=== PATIENT | female | born 1935 | race Caucasian/White ===

== ENCOUNTER → 2017-02-06 | Outpatient (CLI) | payer MEDICARE ==
--- NOTE | 2017-02-07 07:08 | MM ---
Reason for exam: screening (asymptomatic). Last mammogram was performed 2 years and 8 months ago. History: Patient is postmenopausal and has history of other cancer at age 66. Took estrogen for 10 years beginning at age 52. Took progesterone for 10 years beginning at age 52. Physical Findings: A clinical breast exam by your physician is recommended on an annual basis and results should be correlated with mammographic findings. MG 3D Screening Mammo W/Cad Bilateral CC and MLO view(s) were taken. Prior study comparison: June 08, 2014, left breast MG work up mamm w CAD LT. June 04, 2014, bilateral MG screening mammo w CAD. There are scattered fibroglandular densities. Asymmetric breast tissue in the left breast. No significant changes when compared with prior studies. ASSESSMENT: Benign, BI-RAD 2 RECOMMENDATION: Routine screening mammogram of both breasts in 1 year.
== END | disposition home or self-care (01) ==
LOC: RADMAMWWP 12:50
PROVIDERS: ATTEND Obstetrics & Gynecology Obstetrics
DX: Z12.31 Encounter for screening mammogram for malignant neoplasm of breast (principal); Z85.42 Personal history of malignant neoplasm of other parts of uterus
CPT/HCPCS: 77063; G0202

== ENCOUNTER 2023-12-16 12:55 | Inpatient (IN) | payer MEDICARE ==
--- NOTE | 2023-12-16 14:01 | ED ---
Fall HPI - General Chief Complaint: Fall Stated Complaint: Fall Time Seen by Provider: 12/16/23 13:05 Source: EMS, RN notes reviewed, old records reviewed Mode of arrival: EMS Limitations: no limitations - History of Present Illness Initial Comments: This is a 88-year-old female after a fall today. Patient has fall mechanical fall from standing landing on left hip severe left hip pain and inability to ambulate. Blood thinners did not hit head no headache chest pain shortness of breath abdominal pain. 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 Place Fall Occurred: home Loss of Consciousness: none Prolonged Down Time?: no Symptoms Prior to Fall: none Location - Extremities: Left: Thigh, Knee, Right: Knee Severity: severe Context: tripped/slipped Associated Symptoms: denies - Related Data Home Medications Medication Instructions Recorded Confirmed Cinacalcet [Sensipar] 30 mg PO MOWEFR 12/16/23 12/16/23 Famotidine [Pepcid] 20 mg PO BID 12/16/23 12/16/23 Memantine [Namenda] 5 mg PO BID 12/16/23 12/16/23 Simvastatin [Zocor] 20 mg PO HS 12/16/23 12/16/23 Previous Rx's Medication Instructions Recorded HYDROcodone/APAP 7.5-325MG [Preemption 1 tab PO Q4-6H PRN #30 tab 12/18/23 7.5-325] Rivaroxaban [Xarelto] 10 mg PO DAILY #30 tab 12/18/23 Sennosides [Senokot] 2 tab PO DAILY PRN #60 tablet 12/18/23 Acetaminophen Tab [Tylenol] 650 mg PO Q6HR PRN tab 12/20/23 Allergies Allergy/AdvReac Type Severity Reaction Status Date / Time No Known Allergies Allergy Verified 12/16/23 16:12 Review of Systems ROS Statement: Those systems with pertinent positive or pertinent negative responses have been documented in the HPI. ROS Other: All systems not noted in ROS Statement are negative. 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 Past Surgical History: Hysterectomy Additional Past Surgical History / Comment(s): Back surgery Smoking Status: Never smoker Past Alcohol Use History: None Reported Past Drug Use History: None Reported General Exam General appearance: alert, in no apparent distress Head exam: Present: atraumatic, normocephalic, normal inspection Eye exam: Present: normal appearance, PERRL, EOMI. Absent: scleral icterus, conjunctival injection, periorbital swelling ENT exam: Present: normal exam, mucous membranes moist Neck exam: Present: normal inspection. Absent: tenderness, meningismus, lymphadenopathy Respiratory exam: Present: normal lung sounds bilaterally. Absent: respiratory distress, wheezes, rales, rhonchi, stridor Cardiovascular Exam: Present: regular rate, normal rhythm, normal heart sounds. Absent: systolic murmur, diastolic murmur, rubs, gallop, clicks GI/Abdominal exam: Present: soft, normal bowel sounds. Absent: distended, tenderness, guarding, rebound, rigid Extremities exam: Present: normal inspection, full ROM, normal capillary refill. Absent: tenderness, pedal edema, joint swelling, calf tenderness Back exam: Present: normal inspection Neurological exam: Present: alert, oriented X3, CN II-XII intact Psychiatric exam: Present: normal affect, normal mood Skin exam: Present: warm, dry, intact, normal color. Absent: rash Course Vital Signs 12/16/23 12/16/23 12/16/23 12:58 19:26 21:19 Temperature 98.9 F 98.9 F Pulse Rate 108 H 90 91 Respiratory 20 18 20 Rate Blood Pressure 130/82 105/64 125/68 O2 Sat by Pulse 92 L 95 Oximetry - Reevaluation(s) Reevaluation #1: 12/16/23 14:11 Medical records reviewed Reevaluation #2: Patient symptoms improved and pain control Reevaluation #3: Patient informed of results and questions answered Reevaluation #4: Was pt. sent in by a medical professional or institution (, PA, DIRECTOR OF SUSTAINABLE DESIGN, urgent care, hospital, or skilled nursing...) When possible be specific @ -no Did you speak to anyone other than the patient for history (EMS, parent, family, police, friend...)? What history was obtained from this source @ -no Did you review nursing and triage notes (agree or disagree)? Why? @ -agree Are old charts reviewed (outside hosp., previous admission, EMS record, old EKG, old radiological studies, urgent care reports/EKG's, skilled nursing records)? Report findings @ -yes Differential Diagnosis (chest pain, altered mental status, abdominal pain women, abdominal pain men, vaginal bleeding, weakness, fever, dyspnea, syncope, headache, dizziness, GI bleed, back pain, seizure, CVA, palpatations, mental health, musculoskeletal)? @ -prior EKG interpreted by me (3pts min.). @ -yes X-rays interpreted by me (1pt min.). @ -yes negative for acute disease CT interpreted by me (1pt min.). @ -no U/S interpreted by me (1pt. min.). @ -no What testing was considered but not performed or refused? (CT, X-rays, U/S, labs)? Why? @ -none What meds were considered but not given or refused? Why? @ -none Did you discuss the management of the patient with other professionals (professionals i.e. , PA, DIRECTOR OF SUSTAINABLE DESIGN, lab, RT, psych nurse, manager social media, clay miller, teacher, electronic warfare officer, housing case manager)? Give summary @ -no Was smoking cessation discussed for >3mins.? @ -no Was critical care preformed (if so, how long)? @ -no Were there social determinants of health that impacted care today? How? (Homelessness, low income, unemployed, alcoholism, drug addiction, transportation, low edu. Level, literacy, decrease access to med. care, skilled nursing, rehab)? @ -none Was there de-escalation of care discussed even if they declined (Discuss DNR or withdrawal of care, Hospice)? DNR status @ -no What co-morbidities impacted this encounter? (DM, HTN, Smoking, COPD, CAD, Cancer, CVA, ARF, Chemo, Hep., AIDS, mental health diagnosis, sleep apnea, morbid obesity)? @ -none Was patient admitted / discharged? Hospital course, mention meds given and route, prescriptions, significant lab abnormalities, going to OR and other pertinent info. @ - 88 female status post fall this is a slip and fall resulting in hip fracture right hip fracture, patient will be admitted for surgical evaluation and management Admitted Undiagnosed new problem with uncertain prognosis? @ -no Drug Therapy requiring intensive monitoring for toxicity (Heparin, Nitro, Insulin, Cardizem)? @ -no Were any procedures done? @ -no Diagnosis/symptom? @ -Fall with hip fracture Acute, or Chronic, or Acute on Chronic? @ -Acute Uncomplicated (without systemic symptoms) or Complicated (systemic symptoms)? @ -Complicated Side effects of treatment? @ -no Exacerbation, Progression, or Severe Exacerbation? @ -exacerbation Poses a threat to life or bodily function? How? (Chest pain, [place], [place], pneumonia, PE, COPD, DKA, ARF, appy, cholecystitis, CVA, Diverticulitis, Homicidal, Suicidal, threat to staff... and all critical care pts) @ -yes extremes of age Reevaluation #5: Differential chest pain - Consultations Consultation #1: Spoke with orthopedics to admit this patient Medical Decision Making - Medical Decision Making 88 female status post fall this is a slip and fall resulting in hip fracture right hip fracture, patient will be admitted for surgical evaluation and management - Lab Data Result diagrams: 12/20/23 06:51 12/20/23 06:51 - EKG Data -: EKG Interpreted by Me (EKG is sinus 76 SC 214 QRS 70 QTc 450) - Radiology Data Radiology results: report reviewed (X-ray chest pelvis knee right hip is positive for right hip fracture), image reviewed Disposition Clinical Impression: Displaced fracture of right femoral neck, Right hip pain, Fall Disposition: ADMITTED IP TO THIS [facility] Condition: Serious Is patient prescribed a controlled substance at d/c from ED?: No Time of Disposition: 16:00
--- NOTE | 2023-12-16 14:51 | XR ---
EXAMINATION TYPE: XR chest 1V DATE OF EXAM: 12/16/2023 2:34 PM CLINICAL INDICATION:Female, 88 years old with history of fall; COMPARISON: Scoliosis changes of the spine. TECHNIQUE: XR chest 1V Frontal view of the chest. FINDINGS: Lungs/Pleura: There is no evidence of pleural effusion, focal consolidation, or pneumothorax. Pulmonary vascularity: Unremarkable. Heart/mediastinum: Cardiomediastinal silhouette is unremarkable. Musculoskeletal: No acute osseous pathology. IMPRESSION: No acute cardiopulmonary disease/process.
--- NOTE | 2023-12-16 14:52 | XR ---
EXAMINATION TYPE: XR knee limited RT DATE OF EXAM: 12/16/2023 2:34 PM CLINICAL INDICATION:Female, 88 years old with history of fall; [facility] COMPARISON: None. TECHNIQUE: XR knee limited RT; examined in Frontal, lateral projections. FINDINGS: No evidence of any acute osseous pathology, soft tissue swelling, or joint effusion is no noris. Tricompartmental osteophyte formation involving the femoral condyles, tibial plateau and patella . Mild to moderate joint space narrowing. Calcification of the menisci. A fabella is present. IMPRESSION: 1. No acute osseous pathology. 2. Moderate tricompartmental osteoarthritic changes.
--- NOTE | 2023-12-16 14:54 | XR ---
EXAMINATION TYPE: XR Hip RT and AP Pelvis DATE OF EXAM: 12/16/2023 2:34 PM CLINICAL INDICATION:Female, 88 years old with history of fall; COMPARISON: None. TECHNIQUE: XR Hip RT and AP Pelvis; hip was examined in the frontal and lateral projections and a AP pelvis. FINDINGS/IMPRESSION: 1. Acute right femoral neck fracture with valgus deformity. 2. Degeneration and scoliosis changes of the spine. 3. Postsurgical changes with surgical clips present. 4. Questionable step-off of the left inferior pubic ramus seen on pelvic radiograph. Correlate for l eft-sided pain.
[2023-12-16] MEDS ORDERED: ONDANSETRON 4 MG/2 ML VIAL IVP PRN (16:14)
[2023-12-16] MEDS ORDERED: NALOXONE 0.4 MG/ML 1 ML VIAL IV PRN (16:14)
[2023-12-16] MEDS: SODIUM CHLORIDE 0.9% 1,000 ML IV STA (17:53)
[2023-12-16 18:03] LABS: Basophils # (A) 0.1 k/uL (0-0.2); Basophils % (A) 1 %; Eosinophils # (A) 0.1 k/uL (0-0.7); Eosinophils % (A) 1 %; HCT 36.6 % (34.0-46.0); HGB 11.4 gm/dL (11.4-16.0); Lymphocytes # (A) 1.2 k/uL (1.0-4.8); Lymphocytes % (A) 14 %; MCH 31.6 pg (25.0-35.0); MCHC 31.2 g/dL (31.0-37.0); MCV 101.5 fL (80.0-100.0); Mean Platelet Volume 11.6; Monocytes # (A) 0.9 k/uL (0-1.0); Monocytes % (A) 10 %; Neutrophils # (A) 6.1 k/uL (1.3-7.7); Neutrophils % (A) 72 %; Platelet Count 116 k/uL (150-450); RDW 12.4 % (11.5-15.5); WBC 8.5 k/uL (3.8-10.6)
[2023-12-16] MEDS ORDERED: traMADol 50 MG TAB PO PRN (18:03)
[2023-12-16 18:13] LABS: ALT 15 U/L (4-34); AST 25 U/L (14-36); African American GFR (CKD) 34 (>60 ml/min/1.73 sqM); Albumin 3.8 g/dL (3.5-5.0); Alkaline Phosphatase 53 U/L (38-126); Anion Gap 5 mmol/L; Blood Urea Nitrogen 37 mg/dL (7-17); Calcium 8.9 mg/dL (8.4-10.2); Carbon Dioxide 23 mmol/L (22-30); Chloride 108 mmol/L (98-107); Glucose 103 mg/dL (74-99); Non-African American GFR(CKD) 29 (>60 ml/min/1.73 sqM); Phosphorus 3.8 mg/dL (2.5-4.5); Potassium 4.6 mmol/L (3.5-5.1); Sodium 136 mmol/L (137-145); Total Bilirubin 0.9 mg/dL (0.2-1.3); Total Protein 6.6 g/dL (6.3-8.2)
[2023-12-16 18:21] LABS: NT-Pro-B-Type Natriuretic Pept 348 pg/mL
[2023-12-16] MEDS: traMADol 50 MG TAB PO PRN (18:37)
[2023-12-16 19:03] LABS: Large Platelets Present
[2023-12-16] MEDS: FAMOTIDINE 20 MG TAB PO SCH (23:30)
[2023-12-16] MEDS: MEMANTINE 5 MG TAB PO SCH (23:30)
[2023-12-16] MEDS: ATORVASTATIN 10 MG TAB PO SCH (23:30)
[2023-12-17] MEDS: lisinopriL 20 MG TAB PO SCH (09:09)
--- NOTE | 2023-12-17 09:16 | P.HPOR ---
History of Present Illness H&P Date: 12/17/23 Chief Complaint: Right hip fracture s/p fall The patient is an 88-year-old female with a past medical history including stage III chronic kidney disease, dementia, hypertension, and hyperlipidemia, who presented to the emergency department after sustaining a fall at home. She states she fell directly on the right side and was unable to bear weight on the right leg. Upon evaluation in the emergency department, the patient was found to have a right displaced femoral neck fracture and right forearm skin tear. She denies hitting her head. this morning, the patient states that her pain is controlled at this time. The patient's daughters at the bedside and states that the patient does use a walker and lives in their own home with her . Review of Systems Constitutional: Denies chills, Denies fatigue, Denies fever Cardiovascular: Denies chest pain, Denies shortness of breath Respiratory: Denies cough Gastrointestinal: Denies diarrhea, Denies nausea, Denies vomiting Musculoskeletal: right: hip pain, hip stiffness, hip swelling Past Medical History Past Medical History: Hyperlipidemia, Hypertension Additional Past Medical History / Comment(s): Stage 3 chronic kidney disease and osteoporesis, early onset dementia-unspecified History of Any Multi-Drug Resistant Organisms: None Reported Past Surgical History: Hysterectomy Additional Past Surgical History / Comment(s): Back surgery, bilateral cataracts Past Anesthesia/Blood Transfusion Reactions: No Reported Reaction Past Psychological History: No Psychological Hx Reported Smoking Status: Never smoker Past Alcohol Use History: None Reported Past Drug Use History: None Reported Medications and Allergies Home Medications Medication Instructions Recorded Confirmed Type Cinacalcet [Sensipar] 30 mg PO MOWEFR 12/16/23 12/16/23 History Enalapril [Vasotec] 10 mg PO DAILY 12/16/23 12/16/23 History Famotidine [Pepcid] 20 mg PO BID 12/16/23 12/16/23 History Memantine [Namenda] 5 mg PO BID 12/16/23 12/16/23 History Simvastatin [Zocor] 20 mg PO HS 12/16/23 12/16/23 History traMADol HCl [Ultram] 50 mg PO Q6HR PRN 12/16/23 12/16/23 History Allergies Allergy/AdvReac Type Severity Reaction Status Date / Time No Known Allergies Allergy Verified 12/16/23 16:12 Physical Examination The patient is a 88 year old female that is no acute distress. She is alert and oriented x3. The patient's head is normocephalic and atraumatic. Exam of the cervical spine reveals no pain upon palpation or range of motion. Exam of the bilateral upper extremities reveal no obvious deformities or pain upon range of motion. There is a dressing on the right forearm that is clean and dry. Exam of the left lower extremity reveals no pain upon palpation and full range of motion of the hip. no pain upon AP and lateral compression of the pelvis on the left side. Exam of the right lower extremity reveals a externally rotated and shortened leg. No pain upon palpation to the lateral hip. There is pain upon logrolling and any range of motion of the leg. Bilateral calves are soft and nontender. Patient has good foot and ankle motion bilaterally. Neurological and circulatory status is intact. Results X-rays of the right hip and pelvis reveals a displaced right femoral neck fracture and possible old left inferior pubic rami fracture. - Labs Labs: Abnormal Lab Results - Last 24 Hours (Table) 12/16/23 12/16/23 Range/Units 17:53 17:53 RBC 3.60 L (3.80-5.40) m/uL MCV 101.5 H (80.0-100.0) fL Plt Count 116 L (150-450) k/uL Sodium 136 L (137-145) mmol/L Chloride 108 H (98-107) mmol/L BUN 37 H (7-17) mg/dL Creatinine 1.57 H (0.52-1.04) mg/dL Glucose 103 H (74-99) mg/dL H & H 12/16/23 Range/Units 17:53 Hgb 11.4 (11.4-16.0) gm/dL Hct 36.6 (34.0-46.0) % Result Diagrams: 12/16/23 17:53 12/16/23 17:53 Assessment and Plan (1) Chronic kidney disease Current Visit: Yes Status: Acute Code(s): N18.9 - CHRONIC KIDNEY DISEASE, UNSPECIFIED SNOMED Code(s): 407143575 (2) Dementia Current Visit: Yes Status: Acute Code(s): F03.90 - UNSP DEMENTIA, UNSP SEVERITY, WITHOUT BEH/PSYCH/MOOD/ANX SNOMED Code(s): 82887084 (3) Hyperlipidemia Current Visit: Yes Status: Acute Code(s): E78.5 - HYPERLIPIDEMIA, UNSPECIFIED SNOMED Code(s): 98828304 (4) Hypertension Current Visit: Yes Status: Acute Code(s): I10 - ESSENTIAL (PRIMARY) HYPERTENSION SNOMED Code(s): 45261432 (5) Right hip pain Current Visit: Yes Status: Acute Code(s): M25.551 - PAIN IN RIGHT HIP SNOMED Code(s): 50958721 (6) Fall Current Visit: Yes Status: Acute Code(s): W19.XXXA - UNSPECIFIED FALL, INITIAL ENCOUNTER SNOMED Code(s): 3014508 (7) Displaced fracture of right femoral neck Current Visit: Yes Status: Acute Code(s): S72.001A - FRACTURE OF UNSP PART OF NECK OF RIGHT FEMUR, INIT SNOMED Code(s): 2121854 Plan: The clinical and x-ray findings were discussed with the patient and her daughter. The case was discussed at length with Dr. Vlad Uribe. Treatment options were discussed and surgical intervention is recommended. We discussed the surgical plan as well as the expected postoperative course. Risks and jerald efits were reviewed including (but not limited to) the risks of infection, bleeding, blood clots, dislocation, delayed or nonunion, anesthesia-related complications and possible need for additional surgery. Questions were invited and answered. The patient expressed understanding and wishes to proceed with surgery. The patient will be kept on bedrest. Continue PRN pain management. NPO today. She is scheduled for a right hip hemiarthroplasty later this afternoon. We will await pre-op clearance from internal medicine.
[2023-12-17 10:41] LABS: Basophils # (A) 0.07 X 10*3/uL (0.00-0.10); Basophils % (A) 0.8 %; Eosinophils # (A) 0.23 X 10*3/uL (0.04-0.35); Eosinophils % (A) 2.6 %; HCT 36.8 % (37.2-46.3); HGB 11.7 g/dL (12.0-15.0); Lymphocytes # (A) 1.55 X 10*3/uL (0.90-5.00); Lymphocytes % (A) 17.5 %; MCH 32.1 pg (27.0-32.0); MCHC 31.8 g/dL (32.0-37.0); MCV 101.1 FL (80.0-97.0); Monocytes # (A) 1.49 X 10*3/uL (0.20-1.00); Monocytes % (A) 16.8 %; NRBC Per 100 WBC 0 X 10*3/uL (0.00-0.01); Neutrophils # (A) 5.53 X 10*3/uL (1.80-7.70); Neutrophils % (A) 62.2 %; Platelet Count 109 X 10*3/uL (140-440); RBC 3.64 X 10*6/uL (4.10-5.20); RDW 13.1 % (11.5-14.5); WBC 8.88 X 10*3/uL (4.50-10.00)
[2023-12-17 10:56] LABS: BUN/Creat Ratio 21.73 Ratio (12.00-20.00); Blood Urea Nitrogen 32.6 mg/dL (9.0-27.0); Glucose 94 mg/dL (70-110); Magnesium 2.1 mg/dL (1.5-2.4); Phosphorus 3.5 mg/dL (2.4-5.1)
[2023-12-17 10:57] LABS: ALT 12 U/L (8-44); AST 23 U/L (13-35); Albumin/Globulin Ratio 1.48 Ratio (1.60-3.17); Alkaline Phosphatase 51 U/L (41-126); Calcium 9.5 mg/dL (8.7-10.3); Carbon Dioxide 21.7 mmol/L (21.6-31.8); Chloride 104 mmol/L (96-109); Globulin 2.7 g/dL (1.6-3.3); Potassium 4.3 mmol/L (3.5-5.5); Sodium 139 mmol/L (135-145); Total Bilirubin 0.8 mg/dL (0.3-1.2); Total Protein 6.7 g/dL (6.2-8.2)
[2023-12-17] MEDS: LACTATED RINGERS 1,000 ML IV ONE (12:04)
[2023-12-17] MEDS: DEXAMETHASONE SOD PHOSPHATE 4 MG/ML 1 ML VIAL IVP ONE (12:10)
[2023-12-17] MEDS: ONDANSETRON 4 MG/2 ML VIAL IVP ONE (12:10)
[2023-12-17] MEDS ORDERED: HYDROmorphone 0.5 MG/0.5 ML SYRINGE IVP PRN ×3 (13:20)
[2023-12-17] MEDS ORDERED: SUCCINYLCHOLINE CHLORIDE 200 MG/10 ML VIAL IV ONE (13:20)
[2023-12-17] MEDS ORDERED: NALOXONE 0.4 MG/ML 1 ML VIAL IV PRN (13:20)
[2023-12-17] MEDS ORDERED: ROCURONIUM 10 MG/ML (5 ML VIAL) IV ONE (13:20)
[2023-12-17] MEDS ORDERED: GLYCOPYRROLATE 0.2 MG/ML 2 ML VIAL ONE (13:20)
[2023-12-17] MEDS ORDERED: MAGNESIUM HYDROXIDE 2,400 MG/30 ML CUP PO PRN (13:20)
[2023-12-17] MEDS ORDERED: TRANEXAMIC 1,000 MG/100ML-NACL PREMIX BAG ONE (13:20)
[2023-12-17] MEDS ORDERED: PHENYLEPHRINE-0.9% NACL SYG 1,000 MCG/10 ML SYRINGE ONE (13:20)
[2023-12-17] MEDS ORDERED: fentaNYL (PF) 50 MCG/ML 2 ML AMP ONE (13:20)
[2023-12-17] MEDS ORDERED: HYDROcodone/APAP 7.5-325MG 1 EACH TAB PO PRN (13:20)
[2023-12-17] MEDS ORDERED: LIDOCAINE 1% INJ 10MG/ML (20 ML MDV) ONE (13:20)
[2023-12-17] MEDS ORDERED: NEOSTIGMINE 1 MG/ML 10 ML VIAL ONE (13:20)
[2023-12-17] MEDS ORDERED: ETOMIDATE 2 MG/ML 10 ML VIAL ONE (13:20)
[2023-12-17] MEDS: SODIUM CHLORIDE 0.9% 100 ML IV ONE (13:25)
[2023-12-17] MEDS: ROPIVACAINE 5 MG/ML 30 ML VIAL MISCELLANE ONE ×2 (14:08→14:16)
--- NOTE | 2023-12-17 14:23 | P.OP ---
Date of Procedure: 12/17/23 Preoperative Diagnosis: subcapital fracture right hip Postoperative Diagnosis: subcapital fracture right hip Procedure(s) Performed: right hip hemiarthroplasty with a direct anterior approach Implants: Judd and nephew Polarstem size 3 standard with a collar Judd [employer] Nephew tandem unipolar, 43 mm Judd [employer] Nephew tandem unipolar 12/14 taper sleeve, +0 mm All components were press-fit. Anesthesia: GETA Surgeon: Vlad Uribe Cabin Supervisor #1: Kimberley Tong Estimated Blood Loss (ml): 150 Pathology: none sent Condition: stable Disposition: PACU Indications for Procedure: this is an 88-year-old female that sustained a ground-level fall at home. X- rays demonstrate a subcapital fracture of the right hip. After discussing the surgical nonsurgical treatment options with her and her family at length, I recommended a right hip hemiarthroplasty. Informed consent was obtained. Operative Findings: the operative findings are consistent with a subcapital fracture of the right hip Description of Procedure: The patient was seen and evaluated in the preoperative area and the consent was reviewed. The operative site was marked with a skin marker. The patient verified the procedure and operative site. A TATY block was placed by anesthesia in the preoperative area. The patient was then brought to the operating room and given preoperative antibiotics intravenously. 1 g of Tranexamic acid was also given intravenously. A general anesthetic was administered by the anesthesia department. The patient was then placed on the [place] table with the bony prominences well-padded. The hip area was then prepped with a ChloraPrep solution and draped in the usual sterile fashion. A universal timeout was then performed, which confirmed the patient's name, surgical site, ALLERGIES, and procedure being performed on the consent. Next the incision site was located at 1 cm distal and 4 cm lateral to the anterior superior iliac spine. The skin and subcutaneous tissues were sharply incised. Incision was carefully dissected down to the fascia overlying the tensor fascia gayla muscle. This fascia was then incised in line with the muscle fibers. Care was taken to stay laterally in order to avoid injuring the lateral femoral cutaneous nerve. Next, using blunt finger dissection, the tensor fascia gayla muscle was dissected off its investing fascia. The muscle was then carefully retracted laterally with a cobra retractor over the lateral neck of the femur. Next, the circumflex vessels were identified and cauterized using the Aquamantis device. The anterior hip capsule was then exposed. The capsule was then opened and an inverted T fashion. The retractors were then placed intracapsularly. The retractors were maintained intracapsular throughout the procedure. The proximal femur was then visualized. A small amount of traction was placed on the leg. The femoral neck was then osteotomized at the appropriate level above the lesser trochanter. A small wedge of bone was then removed from the remaining femoral head. Next, using a corkscrew the femoral head was removed from the acetabulum. The femoral head was then measured. Attention was then turned to the acetabulum. The acetabulum was exposed and inspected. There was no evidence of any significant arthrosis. Attention was then directed to the femur. With the aid of the [place] table, the femur was externally rotated to approximately 130, extended, and adducted under the opposite leg. A side hook was then placed under the proximal femur, and the side hook elevator was used to elevate the proximal femur while releasing the capsule. Retractors were then placed. A capsular release was performed, as well as a release of the conjoined tendon, which afforded excellent visualization of the proximal femur. Next, a box osteotome was used to lateralize the proximal femur. A deputy sheriff k9 handler was then used to locate the femoral canal. Sequential broaching was then performed with appropriate size which afforded excellent fixation in the proximal femur. A trial was then placed with appropriate head and neck, and the hip was gently reduced with the aid of the [place] table. Fluoroscopy was then used to check position of the components, as well as to evaluate the leg lengths and offset. The leg lengths and offset were measured as closely as possible to ensure stability of the hip. The hip was then gently dislocated and the trials were then removed. Final implants were then impacted and the hip was again reduced. Final fluoroscopic x-rays confirmed that the components were in anatomic position. The leg lengths and offset were measured and were found to coincide with the trial measurements. The hip was also taken through range of motion, and found to be stable. The hip was then copiously irrigated with antibiotic solution with pulsatile lavage. The hip was then irrigated with Irrisept solution. The soft tissues were then injected with a ropivacaine solution. A second dose of 1 g of Tranexamic acid was also given intravenously. The fascia was then closed with 2-0 strata fix suture. The subcutaneous tissue was closed with 3-0 Vicryl. The subcuticular tissue was closed with 3-0 strata fix suture. The skin was then closed with Exofin skin glue. After the glue and dried, and Optifoam silver impregnated dressing was applied. The patient was then transferred to the recovery room in stable condition. The elementary assistant teacher KLEBER Hu was required due to the complexity of surgery, and the need for skilled surgical clinical reviewer for positioning, draping, exposure, retraction, and closure of the wound.
--- NOTE | 2023-12-17 15:32 | FL ---
RT berta hip with Heithoff. 11 sec fluoro time. .3874 DAP. 2 images saved.
[2023-12-17] MEDS: SODIUM CHLORIDE 0.9% 1,000 ML IV SCH (15:55)
--- NOTE | 2023-12-17 16:15 | XR ---
EXAMINATION TYPE: XR Hip Limited RT DATE OF EXAM: 12/17/2023 Comparison: None Clinical History: 88-year-old female RT hip berta Findings: RT berta hip with Heithoff. 11 sec fluoro time. 0.3874 Gycm2 DAP. 2 images saved. Impression: Intraoperative fluoroscopy as above.
--- NOTE | 2023-12-17 16:16 | XR ---
EXAMINATION TYPE: XR Hip Limited AP RT DATE OF EXAM: 12/17/2023 Comparison: None Clinical History: 88-year-old female Status post hip surgery, assess surgical alignment Findings: Image shows placement of right hip hemiarthroplasty. Femoral stem component appears well-seated witho ut periprosthetic fracture. Alignment grossly anatomic. Surgical clips in the right side of the pelvi s. Soft tissue air related to recent operation. Impression: Uncomplicated postoperative appearance right hip total arthroplasty.
[2023-12-17] MEDS: SENNOSIDES-DOCUSATE SODIUM 1 EACH TAB PO SCH (20:23)
--- NOTE | 2023-12-17 22:57 | CONS ---
CONSULTATION REASON FOR CONSULTATION: Advice regarding kidney failure, hypertension, hyperlipidemia, requested by Orthopedics. HISTORY OF PRESENT ILLNESS: This is an 88-year-old woman with past medical history of stage 3 kidney disease, hypertension, hyperlipidemia, was admitted with mechanical fall on standing and assess left hip fracture. The patient is mildly confused. The patient also had renal failure 1.57 on admission, improved to 1.5 with IV hydration. The patient is being closely monitored. There is no history of any fever, rigors, or chills at this time. There is no history of chest pain. Previously, there are no cardiorespiratory symptoms. PAST MEDICAL HISTORY: Reviewed include hypertension, hyperlipidemia, stage 3 kidney disease. Rest of the chart and rest of the history is also reviewed. HOME MEDICATIONS: Reviewed Ultram. Doses and rest of medications reviewed. ALLERGIES: None. FAMILY HISTORY: No history of heart disease or strokes in the family. SOCIAL HISTORY: No history of smoking or alcohol. REVIEW OF SYSTEMS: A 14-point review is negative except as mentioned earlier. PHYSICAL EXAMINATION: VITAL SIGNS: Pulse is 101, blood pressure 128/72, respirations 16. HEENT: Conjunctivae normal. NECK: No jugular venous distention. CARDIOVASCULAR: S1, S2. RESPIRATIONS: Her respiratory system is clear to auscultation. ABDOMEN: Soft, nontender. LEGS: Status post fracture. NERVOUS SYSTEM: Nonfocal. LABORATORY DATA: WBC 8.8, hemoglobin 11.7, albumin globin ratio 1.48. ASSESSMENT: 1. Status post fall and right hip fracture. 2. Chronic kidney stage 3. 3. Dehydration present on admission. 4. Anemia, macrocytic. 5. Mild hyponatremia, improving. 6. Hypertension. 7. Hyperlipidemia. 8. History of cystectomy. 9. Full code. RECOMMENDATIONS AND DISCUSSION: This 88-year-old woman presented after a fall and fracture. At this time, I recommended to continue IV fluids otherwise baseline creatinine is improving at this time. RECOMMENDATIONS: Recommended to monitor the renal functions and lytes very closely. Chest x-ray was reviewed. The patient will be cleared for surgery and home medications will be continued. Pain management per Orthopedic surgery. Prognosis guarded, but however, the patient is currently stable. Discussed at length with the family at the bedside and further recommendations to follow. DVT prophylaxis. MMODL / IJN: [id number] /
[2023-12-18] MEDS: RIVAROXABAN 10 MG TAB PO SCH (08:56)
[2023-12-18] MEDS: CINACALCET 30 MG TAB PO SCH (08:56)
--- NOTE | 2023-12-18 09:56 | P.PN ---
Subjective Progress Note Date: 12/18/23 This is an 88-year-old fe male who is status post right hip hemiarthroplasty with direct anterior approach. This is postoperative day #1 and patient is seen and evaluated at bedside with Dr. Vlad Uribe. Patient is alert but somewhat confused this morning. Patient reports some pain in the right hip, but otherwise denies any new complaints today. Per nursing, the patient took her dressing off. Objective - Vital Signs Vital signs: Vital Signs Temp 98.5 F 12/18/23 07:25 Pulse 113 H 12/18/23 07:25 Resp 16 12/18/23 07:25 BP 140/81 12/18/23 07:25 Pulse Ox 94 L 12/18/23 07:25 FiO2 Intake & Output 12/17/23 12/18/23 12/18/23 18:59 06:59 18:59 Intake Total 650 Output Total 400 400 Balance 250 -400 Intake: IV 650 Output: Urine 250 400 Estimated Blood Loss 150 Other: Voiding Method Indwelling Catheter Indwelling Catheter Diaper # Voids 1 - Exam Vital signs are stable. Patient is in no acute distress and is alert and pleasantly confused. Calf is soft and nontender to palpation. Dressing is clean, dry, and intact. Patient has full foot and ankle motion without pain or difficulty. Sensation intact. Neurovascular status and circulatory status are intact. - Labs CBC & Chem 7: 12/17/23 05:09 12/17/23 05:09 Labs: Abnormal Lab Results - Last 24 Hours (Table) 12/17/23 12/17/23 Range/Units 05:09 05:09 RBC 3.64 L (4.10-5.20) X 10*6/uL Hgb 11.7 L (12.0-15.0) g/dL Hct 36.8 L (37.2-46.3) % MCV 101.1 H (80.0-97.0) FL MCH 32.1 H (27.0-32.0) pg MCHC 31.8 L (32.0-37.0) g/dL Plt Count 109 L (140-440) X 10*3/uL MPV 14.0 H (9.5-12.2) FL Monocytes # 1.49 H (0.20-1.00) X 10*3/uL Anion Gap 13.30 H (4.00-12.00) mmol/L BUN 32.6 H (9.0-27.0) mg/dL Est GFR (CKD-EPI) 34 L (>=60) BUN/Creatinine Ratio 21.73 H (12.00-20.00) Ratio Albumin/Globulin Ratio 1.48 L (1.60-3.17) Ratio Assessment and Plan Plan: Continue routine postop care and pain control. A new dressing was applied by [facility] staff today. Continue anticoagulation with Xarelto. Weightbearing as tolerated with a walker. Leave dressing in place for 7 days. Appreciate input from internal medicine. Anticipate discharge to ECF in the next 24-48 hours.
[2023-12-18 10:42] LABS: Magnesium 2.1 mg/dL (1.5-2.4)
[2023-12-18 11:14] LABS: ALT 11 U/L (8-44); AST 43 U/L (13-35); Albumin 3.7 g/dL (3.8-4.9); Albumin/Globulin Ratio 1.61 Ratio (1.60-3.17); Alkaline Phosphatase 46 U/L (41-126); BUN/Creat Ratio 19.21 Ratio (12.00-20.00); Blood Urea Nitrogen 36.5 mg/dL (9.0-27.0); Calcium 8.6 mg/dL (8.7-10.3); Carbon Dioxide 17.6 mmol/L (21.6-31.8); Chloride 104 mmol/L (96-109); Globulin 2.3 g/dL (1.6-3.3); Glucose 106 mg/dL (70-110); Potassium 4.7 mmol/L (3.5-5.5); Sodium 139 mmol/L (135-145); Total Bilirubin 0.3 mg/dL (0.3-1.2)
[2023-12-18 11:47] LABS: Basophils # (A) 0.03 X 10*3/uL (0.00-0.10); Basophils % (A) 0.2 %; Eosinophils # (A) 0 X 10*3/uL (0.04-0.35); Eosinophils % (A) 0 %; HCT 30.6 % (37.2-46.3); HGB 9.9 g/dL (12.0-15.0); Lymphocytes # (A) 1.29 X 10*3/uL (0.90-5.00); Lymphocytes % (A) 8.4 %; MCH 32.1 pg (27.0-32.0); MCHC 32.4 g/dL (32.0-37.0); MCV 99.4 FL (80.0-97.0); Mean Platelet Volume 13.7 FL (9.5-12.2); Monocytes # (A) 2.41 X 10*3/uL (0.20-1.00); Monocytes % (A) 15.7 %; NRBC Per 100 WBC 0 X 10*3/uL (0.00-0.01); Neutrophils # (A) 11.55 X 10*3/uL (1.80-7.70); Neutrophils % (A) 75.2 %; Platelet Count 105 X 10*3/uL (140-440); RBC 3.08 X 10*6/uL (4.10-5.20); RDW 13.2 % (11.5-14.5); WBC 15.35 X 10*3/uL (4.50-10.00)
[2023-12-18 11:48] LABS: RBC Morphology Normal (Normal)
--- NOTE | 2023-12-18 15:32 | XR ---
EXAMINATION TYPE: XR chest 1V portable DATE OF EXAM: 12/18/2023 Comparison: 12/16/2023 Clinical History: 88-year-old female shortness of breath Findings: Patient rotated towards the right ultrasound and normal cardiothymic mediastinal contours. Levoconvex scoliosis. Heart borderline in size. Patchy left basilar opacity appears new. No pleural effusion. Impression: Scoliosis. Rotated exam. New patchy left basilar opacity. Correlate for possible pneumonia.
--- NOTE | 2023-12-19 02:10 | PN ---
PROGRESS NOTE DATE OF SERVICE: 12/18/2023 SUBJECTIVE: This is an 88-year-old woman who was admitted with fall and right hip fracture and surgery. The patient also had renal failure, currently today the creatinine is 1.9. Estimated GFR is not available, it was 29 to begin with. The patient also had elevated white count and hemoglobin is 9.9 today. PAST MEDICAL HISTORY: Reviewed. REVIEW OF SYSTEMS: A 14-point review is negative except as mentioned earlier. CURRENT MEDICATIONS: Reviewed include Pepcid. PHYSICAL EXAMINATION: VITAL SIGNS: Pulse is 113, blood pressure 140/80, respirations 16. HEENT: Conjunctivae normal. NECK: No jugular venous distention. CARDIOVASCULAR: S1, S2. RESPIRATIONS: Diminished at the bases, scattered rhonchi. ABDOMEN: Soft, nontender. LEGS: No edema, no swelling. NERVOUS SYSTEM: Nonfocal. LABORATORY DATA: WBC 15.5, hemoglobin 9.9. ASSESSMENT: 1. Status post fall and right hip fracture and right hip hemiarthroplasty. 2. Chronic kidney disease, stage III. 3. Elevated WBC. 4. Dehydration present on admission. 5. Anemia, macrocytic. 6. Mild hyponatremia. 7. Hypertension. 8. Hyperlipidemia. 9. History of cyst. 10.Multiple medical issues. RECOMMENDATIONS AND DISCUSSION: This is an 88-year-old woman who presented with multiple medical issues, we will monitor the patient closely. I would recommend UA with micro, chest x-ray. Repeat labs. DVT prophylaxis. Incentive spirometry. Monitor creatinine closely. Continue the IV fluids. Discussed with family, follow closely with Orthopedic surgery. Once the patient is stabilized with PT OT evaluation, possible ECF rehab, stable, overall prognosis guarded because of the above-mentioned medical issues. Discussed with family. Further recommendations to follow. MMODL / IJN: [id number] /
[2023-12-19 04:54] LABS: Appearance,Urine Cloudy (Clear); Bacteria,Urine Rare /hpf; Bilirubin,Urine Negative (Negative); Blood,Urine Moderate (Negative); Color,Urine Colorless; Glucose,Urine (UA) Negative (Negative); Granular Casts,Urine 4 /lpf (0); Hyaline Casts,Urine 5 /lpf (0-2); Ketones,Urine Negative (Negative); Leukocyte Esterase,Urine Large (Negative); Mucus,Urine Rare /hpf; Nitrite,Urine Negative (Negative); PH, Urine 5.5 (5.0-8.0); Protein,Urine 1+ (Negative); RBC,Urine 3 /hpf (0-5); Specific Gravity,Urine 1.016 (1.001-1.035); Squamous Epithelial Cell,Urine 2 /hpf (0-4); Urobilinogen,Urine <2.0 mg/dL (<2.0); WBC,Urine 25 /hpf (0-5)
[2023-12-19 08:46] LABS: Basophils # (A) 0.05 X 10*3/uL (0.00-0.10); Basophils % (A) 0.3 %; Eosinophils # (A) 0.01 X 10*3/uL (0.04-0.35); Eosinophils % (A) 0.1 %; HGB 9.1 g/dL (12.0-15.0); Lymphocytes # (A) 1.32 X 10*3/uL (0.90-5.00); Lymphocytes % (A) 8.8 %; MCH 32.7 pg (27.0-32.0); MCHC 32.5 g/dL (32.0-37.0); MCV 100.7 FL (80.0-97.0); Mean Platelet Volume 13.6 FL (9.5-12.2); NRBC Per 100 WBC 0 X 10*3/uL (0.00-0.01); Neutrophils # (A) 10.85 X 10*3/uL (1.80-7.70); Neutrophils % (A) 72.3 %; Platelet Count 82 X 10*3/uL (140-440); RBC 2.78 X 10*6/uL (4.10-5.20); RDW 13.3 % (11.5-14.5)
[2023-12-19 08:55] LABS: Blood Urea Nitrogen 32.8 mg/dL (9.0-27.0); Calcium 8.1 mg/dL (8.7-10.3); Carbon Dioxide 22.1 mmol/L (21.6-31.8); Chloride 107 mmol/L (96-109); Glucose 104 mg/dL (70-110); Potassium 4.4 mmol/L (3.5-5.5); Sodium 139 mmol/L (135-145)
[2023-12-19] MEDS ORDERED: ACETAMINOPHEN TAB 325 MG TAB PO PRN (13:29)
--- NOTE | 2023-12-19 14:27 | P.PN ---
Subjective Progress Note Date: 12/19/23 This is an 88-year-old fe male who is status post right hip hemiarthroplasty with direct anterior approach. This is postoperative day #2 and patient is seen and evaluated at bedside today. Patien denies any new complaints today and states that she was able to work with physical therapy. Objective - Vital Signs Vital signs: Vital Signs Temp 98.7 F 12/19/23 13:54 Pulse 118 H 12/19/23 13:54 Resp 16 12/19/23 13:54 BP 90/52 12/19/23 13:54 Pulse Ox 92 L 12/19/23 13:54 FiO2 Intake & Output 12/18/23 12/19/23 12/19/23 18:59 06:59 18:59 Intake Total 358 Output Total 200 Balance -200 358 Intake: Oral 358 Output: Urine 200 Other: Voiding Method Diaper Diaper Incontinent # Voids 1 # Bowel Movements 1 - Exam Vital signs are stable. Patient is in no acute distress and is alert and oriented. Calf is soft and nontender to palpation. Dressing is clean, dry, and intact. Patient has full foot and ankle motion without pain or difficulty. Sensation intact. Neurovascular status and circulatory status are intact. - Labs CBC & Chem 7: 12/19/23 06:07 12/19/23 06:07 Labs: Abnormal Lab Results - Last 24 Hours (Table) 12/19/23 12/19/23 12/19/23 Range/Units 04:26 06:07 06:07 WBC 15.00 H (4.50-10.00) X 10*3/uL RBC 2.78 L (4.10-5.20) X 10*6/uL Hgb 9.1 L (12.0-15.0) g/dL Hct 28.0 L (37.2-46.3) % MCV 100.7 H (80.0-97.0) FL MCH 32.7 H (27.0-32.0) pg Plt Count 82 L (140-440) X 10*3/uL MPV 13.6 H (9.5-12.2) FL Immature Gran # 0.07 H (0.00-0.04) X 10*3/uL Neutrophils # 10.85 H (1.80-7.70) X 10*3/uL Monocytes # 2.70 H (0.20-1.00) X 10*3/uL Eosinophils # 0.01 L (0.04-0.35) X 10*3/uL BUN 32.8 H (9.0-27.0) mg/dL Creatinine 1.6 H (0.6-1.5) mg/dL Est GFR (CKD-EPI) 31 L (>=60) BUN/Creatinine Ratio 20.50 H (12.00-20.00) Ratio Calcium 8.1 L (8.7-10.3) mg/dL Urine Appearance Cloudy H (Clear) Urine Protein 1+ H (Negative) Urine Blood Moderate H (Negative) Ur Leukocyte Esterase Large H (Negative) Urine WBC 25 H (0-5) /hpf Urine Bacteria Rare H (None) /hpf Hyaline Casts 5 H (0-2) /lpf Urine Mucus Rare H (None) /hpf Assessment and Plan Assessment: Status post right hip hemiarthroplasty with direct anterior approach. (1) Displaced fracture of right femoral neck Current Visit: Yes Status: Acute Code(s): S72.001A - FRACTURE OF UNSP PART OF NECK OF RIGHT FEMUR, INIT SNOMED Code(s): 0176323 (2) Fall Current Visit: Yes Status: Acute Code(s): W19.XXXA - UNSPECIFIED FALL, INITIAL ENCOUNTER SNOMED Code(s): 0382213 Plan: Continue routine postop care and pain control. Continue anticoagulation with Xarelto. Weightbearing as tolerated with a walker. Leave dressing in place for 7 days. Appreciate input from internal medicine. Anticipate discharge to ECF in the next 24-48 hours.
--- NOTE | 2023-12-19 15:07 | P.PN ---
Subjective Progress Note Date: 12/19/23 This is a pleasant 50-[id number]-year-old female who is evaluated today in follow- up she is postoperative day #2 right hip [place] arthroplasty. She is reporting mild pain to the right hip states that is controlled with oral pain medication at this time would recommend to avoid narcotics in this patient if possible secondary to her advanced age and underlying dementia. Patient's creatinine was elevated yesterday 1.9 she was hydrated gently overnight and has improvement in her creatinine down to 1.6 which appears close to her baseline. Her sodium level is normal at 139. Patient does have an elevated white count of 15.00 which can be expected in the postoperative period following surgery and this is likely reactive in nature patient has been afebrile she is not complaining of any respiratory symptoms of cough or shortness of breath. A urinalysis was completed which does show large leukocyte Estrace although there is no no nitrates and is not overly suspicious for urinary tract infection and patient is not complaining of any dysuria urgency or frequency. We will continue gentle hydration overnight and also check a postvoid residual to rule out any urinary retention as her indwelling catheter has been removed yesterday. Patient's blood pressure has been on the lower side of 120s to 90s postoperatively we will recommend to hold her lisinopril at this time. Review of Systems Constitutional: Denied any fatigue denied any fever. Cardio vascular: denied any chest pain, palpitations Gastrointestinal: denied any nausea, vomiting, diarrhea Pulmonary: Denied any shortness of breath cough Neurologic denied any new focal deficits All inpatient medications were reviewed and appropriate changes in these medications as dictated in the interval history and assessment and plan. PHYSICAL EXAMINATION: GENERAL: The patient is alert and oriented x3, not in any acute distress. Well developed, well nourished. HEENT: Pupils are round and equally reacting to light. EOMI. No scleral icterus. No conjunctival pallor. Normocephalic, atraumatic. No pharyngeal erythema. No thyromegaly. CARDIOVASCULAR: S1 and S2 present. No murmurs, rubs, or gallops. PULMONARY: Chest is clear to auscultation, no wheezing or crackles. ABDOMEN: Soft, nontender, nondistended, normoactive bowel sounds. No palpable organomegaly. MUSCULOSKELETAL: No joint swelling or deformity. EXTREMITIES: No cyanosis, clubbing, or pedal edema. Postoperative dressing to the right hip is intact. NEUROLOGICAL: Gross neurological examination did not reveal any focal deficits. SKIN: No rashes. Assessment and plan Fall and right hip fracture postoperative day #2 right hip hemiarthroplasty Chronic kidney disease stage III creatinine today is 1.6 which appears at baseline Leukocytosis likely reactive secondary to the surgery Atelectasis noted on chest x-ray patient encouraged to use her incentive spirometer Dehydration present on admission patient is being gently hydrated with improvement in her creatinine History of hypertension currently in the 90s to low 100s systolic lisinopril will be held at this time History of hyperlipidemia Early onset dementia type unspecified as per medical history Macrocytic anemia will check a vitamin B12 and folate level GI prophylaxis: Pepcid DVT prophylaxis: Xarelto as per orthopedics Full Code Patient will be discharging to subacute rehab possibly the next 24 to 48 hours. Will repeat blood work in the morning. Continue to encourage incentive spirometer 10 times an hour while awake. Continue gentle hydration overnight. Recommend to hold lisinopril. The impression and plan of care has been dictated by Violeta Leone, Nurse Practitioner as directed. Dr. Keith MD I have performed a history and physical examination and medical decision making of this patient, discussed the same with the dictator, and agree with the dictators assessment and plan as written, documented as a scribe. Based on total visit time, I have performed more than 50% of this visit. Objective - Vital Signs Vital signs: Vital Signs Temp 98.7 F 12/19/23 13:54 Pulse 118 H 12/19/23 13:54 Resp 16 12/19/23 13:54 BP 90/52 12/19/23 13:54 Pulse Ox 92 L 12/19/23 13:54 FiO2 Intake & Output 12/18/23 12/19/23 12/19/23 18:59 06:59 18:59 Intake Total 358 Output Total 200 Balance -200 358 Intake: Oral 358 Output: Urine 200 Other: Voiding Method Diaper Diaper Incontinent # Voids 1 # Bowel Movements 1 - Labs CBC & Chem 7: 12/19/23 06:07 12/19/23 06:07 Labs: Abnormal Lab Results - Last 24 Hours (Table) 12/19/23 12/19/23 12/19/23 Range/Units 04:26 06:07 06:07 WBC 15.00 H (4.50-10.00) X 10*3/uL RBC 2.78 L (4.10-5.20) X 10*6/uL Hgb 9.1 L (12.0-15.0) g/dL Hct 28.0 L (37.2-46.3) % MCV 100.7 H (80.0-97.0) FL MCH 32.7 H (27.0-32.0) pg Plt Count 82 L (140-440) X 10*3/uL MPV 13.6 H (9.5-12.2) FL Immature Gran # 0.07 H (0.00-0.04) X 10*3/uL Neutrophils # 10.85 H (1.80-7.70) X 10*3/uL Monocytes # 2.70 H (0.20-1.00) X 10*3/uL Eosinophils # 0.01 L (0.04-0.35) X 10*3/uL BUN 32.8 H (9.0-27.0) mg/dL Creatinine 1.6 H (0.6-1.5) mg/dL Est GFR (CKD-EPI) 31 L (>=60) BUN/Creatinine Ratio 20.50 H (12.00-20.00) Ratio Calcium 8.1 L (8.7-10.3) mg/dL Urine Appearance Cloudy H (Clear) Urine Protein 1+ H (Negative) Urine Blood Moderate H (Negative) Ur Leukocyte Esterase Large H (Negative) Urine WBC 25 H (0-5) /hpf Urine Bacteria Rare H (None) /hpf Hyaline Casts 5 H (0-2) /lpf Urine Mucus Rare H (None) /hpf Assessment and Plan Time with Patient: Less than 30
[2023-12-19] MEDS: SODIUM CHLORIDE 0.9% 1,000 ML IV SCH (16:57)
[2023-12-20] MEDS: FAMOTIDINE 20 MG TAB PO SCH (08:05)
[2023-12-20] MEDS ORDERED: lisinopriL 10 MG TAB PO SCH (09:00)
[2023-12-20 09:31] VITALS: BP 109/61; PULSE 107; RESP 17; TEMP 98.9
[2023-12-20 10:26] LABS: Basophils # (A) 0.04 X 10*3/uL (0.00-0.10); Basophils % (A) 0.4 %; Eosinophils # (A) 0.12 X 10*3/uL (0.04-0.35); Eosinophils % (A) 1.1 %; HCT 25.4 % (37.2-46.3); Lymphocytes # (A) 1.62 X 10*3/uL (0.90-5.00); Lymphocytes % (A) 15.3 %; MCHC 31.5 g/dL (32.0-37.0); MCV 101.6 FL (80.0-97.0); Mean Platelet Volume 13.4 FL (9.5-12.2); Monocytes # (A) 1.72 X 10*3/uL (0.20-1.00); Monocytes % (A) 16.3 %; NRBC Per 100 WBC 0 X 10*3/uL (0.00-0.01); Neutrophils # (A) 7.04 X 10*3/uL (1.80-7.70); Neutrophils % (A) 66.5 %; Platelet Count 102 X 10*3/uL (140-440); RDW 13.4 % (11.5-14.5); WBC 10.58 X 10*3/uL (4.50-10.00)
[2023-12-20 10:40] LABS: BUN/Creat Ratio 17.86 Ratio (12.00-20.00); Calcium 7.9 mg/dL (8.7-10.3); Carbon Dioxide 19.7 mmol/L (21.6-31.8); Chloride 108 mmol/L (96-109); Glucose 89 mg/dL (70-110); Potassium 4.1 mmol/L (3.5-5.5); Sodium 139 mmol/L (135-145)
--- NOTE | 2023-12-20 12:14 | P.DS ---
Providers Date of admission: 12/16/23 16:16 Expected date of discharge: 12/20/23 Attending physician: Vlad Uribe Consults: 12/16/23 20:09 Consult Physician Routine Consulting Provider: Kaitlyn Jerez Consult Reason/Comments: [employer] Do you want consulting provider notified?: Yes Primary care physician: Juan C Cortezury - Discharge Diagnosis(es) (1) History of right hip hemiarthroplasty Current Visit: Yes Status: Acute (2) Chronic kidney disease Current Visit: Yes Status: Acute (3) Displaced fracture of right femoral neck Current Visit: Yes Status: Acute (4) Fall Current Visit: Yes Status: Acute (5) Hyperlipidemia Current Visit: Yes Status: Acute (6) Hypertension Current Visit: Yes Status: Acute (7) Right hip pain Current Visit: Yes Status: Acute Hospital Course: This is a pleasant 88-year-old female who presented with right subcapital hip fracture status post fall. She was admitted and underwent a right hip hemiarthroplasty with direct anterior approach. The patient tolerated the procedure well and did well postoperatively. She has been working with physical therapy. She has been utilizing a walker to aid in ambulation. She is weight- bear as tolerated on the right lower extremity. She is eating and voiding without difficulty. She is currently planning for discharge to rehabilitation facility today if the authorization is approved. Patient was previously cleared for surgical intervention by medicine. Medicine feels the patient may be cleared for discharge today from their standpoint. Patient currently denies any nausea, vomiting, fever, or chills. Patient is eating and voiding freely without difficulty. Patient may shower Optifoam dressing intact. Patient may remove Optifoam dressing in 3 days and shower without a dressing at that time. Patient should refrain from driving until at least after their first follow-up appointment in the office. Patient may weight-bear as tolerated on the right lower extremity with the assistance of a walker. Patient may use ice over the right hip for comfort and support as needed. MAPS was previously reviewed. An "Opiod Start Talking" Form has been signed and placed in the patient's chart. A prescription has been written for hydrocodone 7.5 mg / 325 mg, 1-2 tabs every 6 hours as needed for acute pain, dispense #32. Prescription has been signed and placed in the patient's chart for discharge. Patient should avoid tramadol while on hydrocodone. Patient will continue with Xarelto for anticoagulation postoperatively over the next 30 days. Patient's other medical diagnoses include chronic kidney disease stage III, postoperative leukocytosis, history of hypertension, history of hyperlipidemia, atelectasis on chest x-ray. Patient will need clearance by medicine prior to discharge. Patient was discussed in detail with medicine today who feels they may be able to clear the patient for discharge. Discharge will be pending insurance authorization. Physical Exam right hip hemiarthroplasty: Status post surgical day number 3 Patient is examined lying in bed Patient is awake and alert, and oriented 3 Vital signs stable No signs or symptoms of DVT; no calf pain, no warmth or firmness to palpation, right calf is soft Lower extremity cuffs currently in place bilaterally Dressing of the right hip is clean, dry, and intact; no erythema, purulence, or signs of infection No pain with palpation over the surgical site Dorsiflexion, plantarflexion, and extensor hallucis longus positive sustained on the right Neurovascularly intact bilateral lower extremities Procedures: Right hip hemiarthroplasty with direct anterior approach Patient Condition at Discharge: Stable Plan - Discharge Summary Discharge Rx Participant: No New Discharge Prescriptions: New Sennosides [Senokot] 2 tab PO DAILY PRN #60 tablet PRN Reason: Constipation HYDROcodone/APAP 7.5-325MG [[place] 7.5-325] 1 tab PO Q4-6H PRN #30 tab PRN Reason: Pain Rivaroxaban [Xarelto] 10 mg PO DAILY #30 tab No Action traMADol HCl [Ultram] 50 mg PO Q6HR PRN PRN Reason: Moderate Pain (Scale 4 To 6) Simvastatin [Zocor] 20 mg PO HS Memantine [Namenda] 5 mg PO BID Enalapril [Vasotec] 10 mg PO DAILY Famotidine [Pepcid] 20 mg PO BID Cinacalcet [Sensipar] 30 mg PO MOWEFR Discharge Medication List Cinacalcet [Sensipar] 30 mg PO MOWEFR 12/16/23 [History] Enalapril [Vasotec] 10 mg PO DAILY 12/16/23 [History] Famotidine [Pepcid] 20 mg PO BID 12/16/23 [History] Memantine [Namenda] 5 mg PO BID 12/16/23 [History] Simvastatin [Zocor] 20 mg PO HS 12/16/23 [History] traMADol HCl [Ultram] 50 mg PO Q6HR PRN 12/16/23 [History] HYDROcodone/APAP 7.5-325MG [[place] 7.5-325] 1 tab PO Q4-6H PRN #30 tab 12/18/23 [Rx] Rivaroxaban [Xarelto] 10 mg PO DAILY #30 tab 12/18/23 [Rx] Sennosides [Senokot] 2 tab PO DAILY PRN #60 tablet 12/18/23 [Rx] Follow up Appointment(s)/Referral(s): Juan C Low MD [Primary Care Provider] - 1-2 days Vlad Uribe DO [Doctor of Osteopathic Medicine] - 2 Weeks Activity/Diet/Wound Care/Special Instructions: Weightbearing as tolerated with walker. Leave dressing intact. Dressing may be removed by home care nurse or by patient in 7 days. Then change dressing twice daily until follow up. May shower with initial dressing intact and after removal. If dressing become saturated, please remove. Please take Xarelto daily for 30 days to prevent blood clots. Recommend use of compression stockings daily until follow up to help prevent swelling and blood clots. May remove at night before sleeping. Please follow[facility]up with [facility] in 2 weeks and call with any questions or concerns, . Discharge Disposition: TRANSFER TO SNF/ECF
--- NOTE | 2023-12-21 16:20 | P.PN ---
Subjective Progress Note Date: 12/20/23 This is a pleasant 74-w[age]-year-old female who is evaluated today in follow- up she is postoperative day #2 right hip [place] arthroplasty. She is reporting mild pain to the right hip states that is controlled with oral pain medication at this time would recommend to avoid narcotics in this patient if possible secondary to her advanced age and underlying dementia. Patient's creatinine was elevated yesterday 1.9 she was hydrated gently overnight and has improvement in her creatinine down to 1.6 which appears close to her baseline. Her sodium level is normal at 139. Patient does have an elevated white count of 15.00 which can be expected in the postoperative period following surgery and this is likely reactive in nature patient has been afebrile she is not complaining of any respiratory symptoms of cough or shortness of breath. A urinalysis was completed which does show large leukocyte Estrace although there is no no nitrates and is not overly suspicious for urinary tract infection and patient is not complaining of any dysuria urgency or frequency. We will continue gentle hydration overnight and also check a postvoid residual to rule out any urinary retention as her indwelling catheter has been removed yesterday. Patient's blood pressure has been on the lower side of 120s to 90s postoperatively we will recommend to hold her lisinopril at this time. 12/20/2023 Patient evaluated in follow-up today she is postoperative day #3 right hip hemiarthroplasty and reporting improved pain. Patient is up ambulating. Patient was hydrated overnight and had improvement in her creatinine down to 1.4 blood cell count has also improved to 0.58. Patient to continue with her incentive spirometer. Patient's TSH is normal at 1.360. Patient is cleared for discharge to subacute rehab today. Review of Systems Constitutional: Denied any fatigue denied any fever. Cardio vascular: denied any chest pain, palpitations Gastrointestinal: denied any nausea, vomiting, diarrhea Pulmonary: Denied any shortness of breath cough Neurologic denied any new focal deficits All inpatient medications were reviewed and appropriate changes in these medications as dictated in the interval history and assessment and plan. PHYSICAL EXAMINATION: GENERAL: The patient is alert and oriented x3, not in any acute distress. Well developed, well nourished. HEENT: Pupils are round and equally reacting to light. EOMI. No scleral icterus. No conjunctival pallor. Normocephalic, atraumatic. No pharyngeal erythema. No thyromegaly. CARDIOVASCULAR: S1 and S2 present. No murmurs, rubs, or gallops. PULMONARY: Chest is clear to auscultation, no wheezing or crackles. ABDOMEN: Soft, nontender, nondistended, normoactive bowel sounds. No palpable organomegaly. MUSCULOSKELETAL: No joint swelling or deformity. EXTREMITIES: No cyanosis, clubbing, or pedal edema. Postoperative dressing to the right hip is intact. NEUROLOGICAL: Gross neurological examination did not reveal any focal deficits. SKIN: No rashes. Assessment and plan Fall and right hip fracture postoperative day #3 right hip hemiarthroplasty Chronic kidney disease stage III creatinine today is 1.4 which appears at baseline Leukocytosis likely reactive secondary to the surgery improving Atelectasis noted on chest x-ray patient encouraged to use her incentive spirometer Dehydration present on admission patient is being gently hydrated with improvement in her creatinine History of hypertension currently in the 90s to low 100s systolic lisinopril will be held at this time History of hyperlipidemia Early onset dementia type unspecified as per medical history Macrocytic anemia B12 and folate are within normal limits GI prophylaxis: Pepcid DVT prophylaxis: Xarelto as per orthopedics Full Code Encouraged to continue incentive spirometer 10 times an hour while awake. Lisinopril be discontinued on discharge. Continue on bowel regimen while using narcotics for pain management. Patient will complete 30 days of DVT prophylaxis with Xarelto 10 mg daily. Patient to repeat blood work in 2 to 3 days. Stable medically for discharge to subacute rehab. The impression and plan of care has been dictated by Nurse Russ Pra ctitioner as directed. Dr. Keith MD I have performed a history and physical examination and medical decision making of this patient, discussed the same with the dictator, and agree with the dictat ors assessment and plan as written, documented as a scribe. Based on total visit time, I have performed more than 50% of this visit. Objective - Vital Signs Vital signs: Vital Signs Temp 98.9 F 12/20/23 07:57 Pulse 107 H 12/20/23 07:57 Resp 17 12/20/23 07:57 BP 109/61 12/20/23 07:57 Pulse Ox 93 L 12/20/23 07:57 FiO2 Intake & Output 12/19/23 12/20/2312/19/24 18:59 06:59 18:59 Intake Total 358 Balance 358 Intake: Oral 358 Other: Voiding Method Incontinent Incontinent # Voids 1 1 # Bowel Movements 1 - Labs CBC & Chem 7: 12/20/23 06:51 12/20/23 06:51 Labs: Abnormal Lab Results - Last 24 Hours (Table) 12/20/23 12/20/23 Range/Units 06:51 06:51 WBC 10.58 H (4.50-10.00) X 10*3/uL RBC 2.50 L (4.10-5.20) X 10*6/uL Hgb 8.0 L (12.0-15.0) g/dL Hct 25.4 L (37.2-46.3) % MCV 101.6 H (80.0-97.0) FL MCHC 31.5 L (32.0-37.0) g/dL Plt Count 102 L (140-440) X 10*3/uL MPV 13.4 H (9.5-12.2) FL Monocytes # 1.72 H (0.20-1.00) X 10*3/uL Carbon Dioxide 19.7 L (21.6-31.8) mmol/L Est GFR (CKD-EPI) 36 L (>=60) Calcium 7.9 L (8.7-10.3) mg/dL Assessment and Plan Time with Patient: Less than 30
== END 2023-12-20 15:39 | DRG 522 ==
LOC: EC 12:55 → 4SSUR 16:16
PROVIDERS: ADMIT Orthopaedic Surgery; ATTEND Orthopaedic Surgery
PROC: 0SR90JA Replacement of Right Hip Joint with Synthetic Substitute, Uncemented, Open Approach (ICD-10-PCS; principal; 2023-12-17 11:30)
DX: S72.011A Unspecified intracapsular fracture of right femur, initial encounter for closed fracture (principal); J98.11 Atelectasis; E87.1 Hypo-osmolality and hyponatremia; S51.811A Laceration without foreign body of right forearm, initial encounter; W18.30XA Fall on same level, unspecified, initial encounter; M81.0 Age-related osteoporosis without current pathological fracture; D63.1 Anemia in chronic kidney disease; Y92.009 Unspecified place in unspecified non-institutional (private) residence as the place of occurrence of the external cause; I12.9 Hypertensive chronic kidney disease with stage 1 through stage 4 chronic kidney disease, or unspecified chronic kidney disease; N18.30 Chronic kidney disease, stage 3 unspecified; F03.90 Unspecified dementia, unspecified severity, without behavioral disturbance, psychotic disturbance, mood disturbance, and anxiety; Z90.6 Acquired absence of other parts of urinary tract; E86.0 Dehydration; E78.5 Hyperlipidemia, unspecified; D72.829 Elevated white blood cell count, unspecified; D53.9 Nutritional anemia, unspecified; Z79.899 Other long term (current) drug therapy; Z28.21 Immunization not carried out because of patient refusal
CPT/HCPCS: 71045; 73501; 73502; 80048; 80053; 81001; 82607; 82746; 83735; 83880; 84100; 84145; 84443; 84484; 85025; 93005; 96360; 96361; 99285

== ENCOUNTER 2025-01-23 15:28 | Inpatient (IN) | payer MEDICARE ==
--- NOTE | 2025-01-23 16:27 | ED ---
General Adult HPI - General Chief complaint: Fall Stated complaint: Fall-L hip injury Time Seen by Provider: 01/23/25 15:42 Source: patient, EMS, RN notes reviewed, old records reviewed Mode of arrival: EMS Limitations: no limitations, physical limitation - History of Present Illness Initial comments: 89-year-old female presents status post fall with left hip pain. Patient had a fall approximately 1 year ago resulting in right hip fracture. She states she fell today directly onto the left hip. No head or neck trauma. She had pain and was unable to stand. She was brought in by paramedics. She has no pain at rest. No anticoagulation. - Related Data Home Medications Medication Instructions Recorded Confirmed Cinacalcet [Sensipar] 30 mg PO MOWEFR 12/16/23 12/16/23 Famotidine [Pepcid] 20 mg PO BID 12/16/23 12/16/23 Memantine [Namenda] 5 mg PO BID 12/16/23 12/16/23 Simvastatin [Zocor] 20 mg PO HS 12/16/23 12/16/23 Previous Rx's Medication Instructions Recorded HYDROcodone/APAP 7.5-325MG [[place] 1 tab PO Q4-6H PRN #30 tab 12/18/23 7.5-325] Rivaroxaban [Xarelto] 10 mg PO DAILY #30 tab 12/18/23 Sennosides [Senokot] 2 tab PO DAILY PRN #60 tablet 12/18/23 Acetaminophen Tab [Tylenol] 650 mg PO Q6HR PRN tab 12/20/23 Allergies Allergy/AdvReac Type Severity Reaction Status Date / Time No Known Allergies Allergy Verified 01/23/25 15:40 Review of Systems ROS Statement: Those systems with pertinent positive or pertinent negative responses have been documented in the HPI. ROS Other: All systems not noted in ROS Statement are negative. 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 History of Any Multi-Drug Resistant Organisms: CRE, ESBL, MRSA Date of last positivie culture/infection: 01/04/25-CRE; 01/04/25-ESBL; 11/17/24-MRSA MDRO Source:: CRE-urine; ESBL-urine; MRSA-urine Past Surgical History: Hysterectomy Additional Past Surgical History / Comment(s): Back surgery Past Anesthesia/Blood Transfusion Reactions: No Reported Reaction Past Psychological History: No Psychological Hx Reported Smoking Status: Never smoker Past Alcohol Use History: None Reported Past Drug Use History: None Reported General Exam Limitations: no limitations, physical limitation General appearance: alert, in no apparent distress Head exam: Present: atraumatic, normocephalic Eye exam: Present: normal appearance, PERRL ENT exam: Present: normal exam Neck exam: Present: normal inspection. Absent: tenderness, meningismus Respiratory exam: Present: normal lung sounds bilaterally. Absent: respiratory distress, wheezes Cardiovascular Exam: Present: regular rate, normal rhythm GI/Abdominal exam: Present: soft. Absent: distended, tenderness Extremities exam: Present: other (Left leg shortened and externally rotated) Neurological exam: Present: alert, oriented X3 Psychiatric exam: Present: normal affect, normal mood Skin exam: Present: warm, dry, intact Course Vital Signs 01/23/25 01/23/25 15:31 17:12 Temperature 98.2 F 98.1 F Pulse Rate 106 H 94 Respiratory 19 19 Rate Blood Pressure 120/73 147/89 O2 Sat by Pulse 95 92 L Oximetry Medical Decision Making - Medical Decision Making Was pt. sent in by a medical professional or institution (, PA, [employer], urgent care, hospital, or detention...) When possible be specific @ -No Did you speak to anyone other than the patient for history (EMS, parent, family, police, friend...)? What history was obtained from this source @Patient's daughter and who are at bedside Did you review nursing and triage notes (agree or disagree)? Why? @ -I reviewed and agree with nursing and triage notes Were old charts reviewed (outside hosp., previous admission, EMS record, old EKG, old radiological studies, urgent care reports/EKG's, detention records)? Report findings @ -No old charts were reviewed Differential Musculoskeletal Muscular strain, contusion, ligament sprain, fracture, arthritis, septic arthritis, bursitis, cellulitis, muscle spasm, nerve compression, DVT, arterial occlusion, herpes zoster, electrolyte abnormality, tumor.... This is not meant to be in all inclusive list EKG interpreted by me (3pts min.). @Sinus rhythm rate of 96, VT interval 208, QRS duration 70, QTc [address] segment elevation X-rays interpreted by me (1pt min.). @ -X-ray of the left hip reveals a femoral neck fracture CT interpreted by me (1pt min.). @ -None done U/S interpreted by me (1pt. min.). @ -None done What testing was considered but not performed or refused? (CT, X-rays, U/S, labs)? Why? @ -None What meds were considered but not given or refused? Why? @ -None Did you discuss the management of the patient with other professionals (professionals i.e. , PA, [employer], lab, RT, psych nurse, criminal justice social worker, nutritional chemist, teacher, property utilization officer, shelter case manager)? Give summary @ -Case discussed with Dr. Epps who will admit, likely surgery tomorrow Was smoking cessation discussed for >3mins.? @ -No Was critical care preformed (if so, how long)? @ -No Were there social determinants of health that impacted care today? How? ( Homelessness, low income, unemployed, alcoholism, drug addiction, transportation, low edu. Level, literacy, decrease access to med. care, intermediate, rehab)? @ -No Was there de-escalation of care discussed even if they declined (Discuss DNR or withdrawal of care, Hospice)? DNR status @ -No What co-morbidities impacted this encounter? (DM, HTN, Smoking, COPD, CAD, Cancer, CVA, ARF, Chemo, Hep., AIDS, mental health diagnosis, sleep apnea, morbid obesity)? @ -Dementia Was patient admitted / discharged? Hospital course, mention meds given and route, prescriptions, significant lab abnormalities, going to OR and other pertinent info. @ -89-year-old female with fall, left hip pain. Patient has a subcapital femoral neck fracture on the left. Preoperative laboratory testing and EKG have been ordered, results pending. Patient admitted to orthopedics with medicine on consult. Undiagnosed new problem with uncertain prognosis? @ -No Drug Therapy requiring intensive monitoring for toxicity (Heparin, Nitro, Insulin, Cardizem)? @ -No Were any procedures done? @ -No Diagnosis/symptom? @Left femoral neck fracture Acute, or Chronic, or Acute on Chronic? @Acute Uncomplicated (without systemic symptoms) or Complicated (systemic symptoms)? @ -Default Side effects of treatment? @ -No Exacerbation, Progression, or Severe Exacerbation? @ -No Poses a threat to life or bodily function? How? (Chest pain, USA, AR, pneumonia, PE, COPD, DKA, ARF, appy, cholecystitis, CVA, Diverticulitis, Homicidal, Suicidal, threat to staff... and all critical care pts) @Yes, debility, hip fracture in the elderly - Lab Data Result diagrams: 01/23/25 17:10 Disposition Clinical Impression: Fracture of femoral neck, left Disposition: ADMITTED IP TO THIS HOSP Condition: Stable Is patient prescribed a controlled substance at d/c from ED?: No Time of Disposition: 16:59
--- NOTE | 2025-01-23 16:45 | XR ---
EXAMINATION TYPE: XR chest 1V DATE OF EXAM: 01/23/2025 4:23 PM COMPARISON: Prior chest radiograph 12/18/2023. CLINICAL INDICATION: Female, 89 years old with history of FALL; [facility] TECHNIQUE: XR chest 1V Frontal view of the chest. FINDINGS: Lungs/Pleura: There is no evidence of pleural effusion, focal consolidation, or pneumothorax. Pulmonary vascularity: Unremarkable. Heart/mediastinum: Cardiomediastinal silhouette is unremarkable. Musculoskeletal: No acute osseous pathology. Other findings: None IMPRESSION: No acute cardiopulmonary disease/process. [facility], , 01/23/2025 4:43 PM
--- NOTE | 2025-01-23 16:48 | XR ---
EXAMINATION TYPE: XR femur LT, XR pelvis AP view DATE OF EXAM: 01/23/2025 4:23 PM COMPARISON: None available. CLINICAL INDICATION: Female, 89 years old with history of FALL; [facility], pain TECHNIQUE: XR femur LT, XR pelvis AP view examined in Frontal and lateral projections. FINDINGS: Comminuted minimally displaced fracture of the subcapital femoral neck. Remaining portion of the femur appears intact. Pelvic bones appear intact as visualized. Right hip arthroplasty. Lumbos acral spinal degenerative changes partially visualized. IMPRESSION: Comminuted minimally displaced fracture of the subcapital left femoral neck. [facility], , 01/23/2025 4:45 PM
[2025-01-23] MEDS ORDERED: NALOXONE 0.4 MG/ML 1 ML VIAL IV PRN (16:52)
[2025-01-23 17:19] LABS: Basophils # (A) 0.04 10*3/uL (0.00-0.10); Basophils % (A) 0.4 %; Eosinophils # (A) 0.03 10*3/uL (0.04-0.35); Eosinophils % (A) 0.3 %; HCT 32.2 % (37.2-46.3); HGB 10.8 g/dL (12.0-15.0); Lymphocytes # (A) 1.57 10*3/uL (0.90-5.00); Lymphocytes % (A) 14.3 %; MCH 31.6 pg (27.0-32.0); MCHC 33.5 g/dL (32.0-37.0); MCV 94.2 fL (80.0-97.0); Mean Platelet Volume 11.4 fL (9.5-12.2); Monocytes # (A) 0.98 10*3/uL (0.20-1.00); Monocytes % (A) 8.9 %; Neutrophils # (A) 8.27 10*3/uL (1.80-7.70); Neutrophils % (A) 75.4 %; Platelet Count 208 10*3/uL (140-440); RBC 3.42 10*6/uL (4.10-5.20); RDW 14.1 % (11.5-14.5); WBC 10.97 10*3/uL (4.50-10.00)
[2025-01-23] MEDS: HYDROcodone/APAP 5-325MG 1 EACH TAB PO PRN (17:19)
[2025-01-23] MEDS: SODIUM CHLORIDE 0.9% 1,000 ML IV SCH (17:20)
[2025-01-23 17:26] LABS: INR 0.9 (<1.2); Partial Thromboplastin Time 22.4 sec (22.0-30.0); Prothrombin Time 10.5 sec (10.0-12.5)
[2025-01-23 17:32] LABS: ALT 20 U/L (4-34); AST 31 U/L (14-36); African American GFR (CKD) 36 (>60 ml/min/1.73 sqM); Albumin 3.8 g/dL (3.5-5.0); Alkaline Phosphatase 75 U/L (38-126); Anion Gap 9 mmol/L; Blood Urea Nitrogen 32 mg/dL (7-17); Calcium 8.8 mg/dL (8.4-10.2); Carbon Dioxide 25 mmol/L (22-30); Chloride 105 mmol/L (98-107); Glucose 118 mg/dL (74-99); Non-African American GFR(CKD) 31 (>60 ml/min/1.73 sqM); Potassium 4.3 mmol/L (3.5-5.1); Sodium 139 mmol/L (137-145); Total Bilirubin 0.5 mg/dL (0.2-1.3)
[2025-01-23] MEDS: FAMOTIDINE 20 MG TAB PO SCH (20:32)
[2025-01-23] MEDS: busPIRone HCl 10 MG TAB PO SCH (20:32)
[2025-01-23] MEDS: MEMANTINE 5 MG TAB PO SCH (20:32)
[2025-01-23] MEDS: MELATONIN 3 MG TABLET PO SCH (20:32)
[2025-01-23] MEDS: ATORVASTATIN 10 MG TAB PO SCH (20:32)
[2025-01-23] MEDS: HYDROmorphone 0.5 MG/0.5 ML SYRINGE IVP PRN (20:42)
[2025-01-23] MEDS: hydrALAZINE HCL 25 MG TAB PO PRN (20:42)
--- NOTE | 2025-01-23 22:17 | P.CONS ---
History of Present Illness - Reason for Consult Consult date: 01/23/25 Medical management Requesting physician: Vaughn Mario - History of Present Illness Patient is a 89 year old female with hypertension, CKD presented to the ED with left hip pain after a fall.Patient seen today in medical consultation for medical management. Patient reports falling today directly on her left hip. She was unable to get up on her own. She denies of any pain at rest. Denies being on any blood thinners. Patient states she had a fall approximately 1 year ago that resulted in the right hip fracture. Patient has a cough that is going on for a couple weeks, but she states getting medical evaluation with PCP who prescribed her Doxycycline. Denies any history of CAD/AFib. Patient is a poor historian. Denies fever, chills, shortness of breath, cough, chest pain, palpitations, abdominal pain, nausea, vomiting, hematuria, dysuria, hematochezia, melena, headache, slurred speech, numbness, tingling, dizziness, lightheadedness, blurred vision, double vision. ED documentation reviewed. In the ED patient was treated with [place], point and normal saline. Vitals on admission T 98.5 F, OH 118 bpm, RR 18, BP 147/89, SpO2 95% on 2L NC EKG independently interpreted as sinus rhythm, rate 96 bpm, QTc 435 ms Chest x-ray shows no acute cardiopulmonary disease/process Pelvis and femur x-ray shows comminuted minimally displaced fracture of the subcapital left femoral neck Labs on admission show WBC 10.97, hemoglobin 10.8, platelet 208, INR 0.9, sodium 139, potassium 4.3, BUN 33, creatinine 1.49, glucose 118 Review of systems: Pertinent positives and negatives as discussed in HPI, a complete review of systems was performed and all other systems are negative. Physical examination: Vital signs reviewed General: nontoxic, no distress, appears at stated age Derm: warm, dry, intact Head: atraumatic, normocephalic, symmetric Eyes: EOMI, anicteric sclera Mouth: no lip lesion, mucus membranes moist Cardiovascular: S1 S2 reg, no murmur Lungs: CTA bilateral, no rhonchi, no rales, no accessory muscle use Abdominal: soft, non-tender to palpation Extremities: No cyanosis, clubbing, or pedal edema. Neuro: Alert, Oriented, Gross neurological examination did not reveal any focal deficits. Psych: well appearing, appropriate affect Assessment/Plan: Patient is a 89 year old female with hypertension, CKD presented to the ED with left hip pain after a fall.Patient seen today in medical consultation for medical management. #. Cough Chest x-ray shows no acute cardiopulmonary disease/process Obtain acute respiratory viral panel Continue home med Guaifenesin #. Sinus tachycardia Pulse 120 EKG shows sinus tachycardia, 1st degree AV block Monitor vital signs optimize pain control IVF normal saline at 75 cc per hour #. Hypertension Continue home meds enalapril daily, hydralazine 25 mg p.o. twice daily hold enalapril for AM #. Hyperlipidemia Continue home med simvastatin 20 mg p.o. at bedtime #. Anxiety/depression Continue home meds buspirone 10 mg p.o. 3 times daily, citalopram 20 mg p.o. daily #. GERD Continue home med famotidine 20 mg p.o. twice daily #. Cognitive decline Continue home med memantine 5 mg p.o. twice daily #. Insomnia Continue home med melatonin 3 mg p.o. at bedtime #. CKD stage IIIb, creatinine 1.49, at baseline monitor urine output follow up electrolytes and renal function avoid nephrotoxic meds #. Chronic anemia Monitor CBC Transfuse for hemoglobin less than 7 #. Left femoral neck fracture Pelvis and femur x-ray shows comminuted minimally displaced fracture of the subcapital left femoral neck Currently on [place], Dilaudid, IV fluids per admitting surgical team Patient maintained n.p.o. overnight DVT PPX per primary team Dictation was produced using [employer] dictation software. please excuse any grammatical, word or spelling errors. Mayur Rouse MD PGY-1 IM I have seen and evaluated the patient today. I Discussed the case with the resident and agree with the resident's findings I edited the assessment and plan as necessary as documented in the resident's note. patient is 89year old Female, presetned with left hip pain after a fall . Berenice ent denies any recent history or symptoms of congestive heart failure, mycardial infarction, syncope, arrhythmia, palpitation, or exertional dyspnea. Patient denies any past medical history of stroke, CAD, CHF, CKD (cr >2) , or DM. can not assess her baseline functional status , she is unable to get up on her own at baseline. Patient labs reviewed, EKG reviewed sinus tachy . Patient is scheduled for orthopedic surgery to fix left hip fracture. This is of moderate risk, however, patient has no medical risk factors from her past medical history. Patient can proceed to surgery with moderate but acceptable perioperative cardiovascular risk factors. This has been explained to the patient , all questions answered, patient verbalized understanding and agreement. hold enalapril in AM , resume post op day 1 hold hydralazine in AM , resume post op with hold parameters if SBP <110 Past Medical History Past Medical History: Hypertension Additional Past Medical History / Comment(s): Stage 3 chronic kidney disease and osteoporesis. History of Any Multi-Drug Resistant Organisms: CRE, ESBL, MRSA Year Discovered:: 01/04/25-CRE; 01/04/25-ESBL; 11/17/24-MRSA MDRO Source:: CRE-urine; ESBL-urine; MRSA-urine Past Surgical History: Hysterectomy Additional Past Surgical History / Comment(s): Back surgery Past Anesthesia/Blood Transfusion Reactions: No Reported Reaction Past Psychological History: No Psychological Hx Reported Smoking Status: Never smoker Past Alcohol Use History: None Reported Past Drug Use History: None Reported Medications and Allergies Home Medications Medication Instructions Recorded Confirmed Type Famotidine [Pepcid] 20 mg PO BID@0800,199912/16/23 01/23/25 History Memantine [Namenda] 5 mg PO BID@08,199912/16/23 01/23/25 History Simvastatin [Zocor] 20 mg PO HS@199912/16/23 01/23/25 History Aspirin EC [Ecotrin Low Dose] 81 mg PO DAILY@79901/23/25 01/23/25 History Citalopram Hydrobromide [CeleXA] 20 mg PO DAILY@79901/23/25 01/23/25 History Doxycycline Hyclate 100 mg PO BID@0800,199901/23/25 01/23/25 History Enalapril [Vasotec] 5 mg PO DAILY@0800 01/23/25 01/23/25 History HYDROcodone/APAP 5-325MG [[place] 1 tab PO BID@08,1999 PRN 01/23/25 01/23/25 History 5-325] Melatonin 3 mg PO HS@199901/23/25 01/23/25 History busPIRone HCl [Buspar] 10 mg PO TID@0800,1400,199901/23/25 01/23/25 History guaiFENesin [Mucinex] 1,200 mg PO BID 01/23/25 01/23/25 History hydrALAZINE HCL [Apresoline] 25 mg PO BID@0800,2200 PRN 01/23/25 01/23/25 History polyethylene glycoL 3350 [Miralax] 17 gm PO DAILY@0800 01/23/25 01/23/25 History Allergies Allergy/AdvReac Type Severity Reaction Status Date / Time No Known Allergies Allergy Verified 01/23/25 18:21 Physical Exam Vitals: Vital Signs Temp Pulse Resp BP Pulse Ox 01/23/25 17:12 98.1 F 94 19 147/89 92 L 01/23/25 15:31 98.2 F 106 H 19 120/73 95 Intake and Output 01/23/25 01/23/25 01/23/25 06:59 14:59 22:59 Other: Weight 49.895 kg Results CBC & Chem 7: 01/23/25 17:10 01/23/25 17:10 Labs: Abnormal Lab Results - Last 24 Hours (Table) 01/23/25 01/23/25 Range/Units 17:10 17:10 WBC 10.97 H (4.50-10.00) 10*3/uL RBC 3.42 L (4.10-5.20) 10*6/uL Hgb 10.8 L (12.0-15.0) g/dL Hct 32.2 L (37.2-46.3) % Immature Gran # 0.08 H (0.00-0.04) 10*3/uL Neutrophils # 8.27 H (1.80-7.70) 10*3/uL Eosinophils # 0.03 L (0.04-0.35) 10*3/uL BUN 32 H (7-17) mg/dL Creatinine 1.49 H (0.52-1.04) mg/dL Glucose 118 H (74-99) mg/dL
[2025-01-23] MEDS: guaiFENesin 600 MG TABLET.ER PO SCH (22:30)
[2025-01-23 23:36] LABS: Influenza A Not Detected (Not Detectd); Influenza B Not Detected (Not Detectd); RSV Not Detected (Not Detectd)
[2025-01-24] MEDS: CALCIUM CARB-VIT D 500 MG-5 MCG TAB PO SCH (06:23)
[2025-01-24] MEDS ORDERED: lisinopriL 10 MG TAB PO SCH (08:00)
--- NOTE | 2025-01-24 09:20 | P.HPOR ---
History of Present Illness H&P Date: 01/24/25 Chief Complaint: Left hip pain Rito is an 89-year-old female with a history of hypertension, stage III chronic kidney disease, and osteoporosis, who presented to the emergency department with left hip pain. She was transfered from her assisted living facility via EMS. X-rays upon arrival in the ED reveal a left subcapital hip fracture. The patient's daughter and are at the bedside this morning. The patient's daughter states that she usually pivot transfers only at baseline since her right hip hemiarthroplasty on 12/17/[address] Vlad Uribe. The daughter also states that the patient has had a cough for the last few weeks without fever and severe illness. Chest x-ray was performed in the ER and was negative for pneumonia. Viral swabs were negative for flu and COVID. The patient's daughter is questioning whether or not she should have skilled rehab after hospitalization and if that would be of benefit. Review of Systems Constitutional: Denies chills, Denies fatigue, Denies fever Cardiovascular: Denies chest pain, Denies shortness of breath Respiratory: Reports cough Gastrointestinal: Denies diarrhea, Denies nausea, Denies vomiting Musculoskeletal: left: hip pain, hip stiffness, hip swelling Past Medical History Past Medical History: Hypertension Additional Past Medical History / Comment(s): Stage 3 chronic kidney disease and osteoporesis. History of Any Multi-Drug Resistant Organisms: CRE, ESBL, MRSA Date of last positivie culture/infection: 01/04/25-CRE; 01/04/25-ESBL; 11/17/24-MRSA MDRO Source:: CRE-urine; ESBL-urine; MRSA-urine Past Surgical History: Hysterectomy Additional Past Surgical History / Comment(s): Back surgery Past Anesthesia/Blood Transfusion Reactions: No Reported Reaction Past Psychological History: No Psychological Hx Reported Smoking Status: Never smoker Past Alcohol Use History: None Reported Past Drug Use History: None Reported Medications and Allergies Home Medications Medication Instructions Recorded Confirmed Type Famotidine [Pepcid] 20 mg PO BID@0800,199912/16/23 01/23/25 History Memantine [Namenda] 5 mg PO BID@0800,199912/16/23 01/23/25 History Simvastatin [Zocor] 20 mg PO HS@199912/16/23 01/23/25 History Aspirin EC [Ecotrin Low Dose] 81 mg PO DAILY@0800 01/23/25 01/23/25 History Citalopram Hydrobromide [CeleXA] 20 mg PO DAILY@79901/23/25 01/23/25 History Doxycycline Hyclate 100 mg PO BID@799,199901/23/25 01/23/25 History Enalapril [Vasotec] 5 mg PO DAILY@79901/23/25 01/23/25 History HYDROcodone/APAP 5-325MG [Lamont 1 tab PO BID@799,1999 PRN 01/23/25 01/23/25 History 5-325] Melatonin 3 mg PO HS@199901/23/25 01/23/25 History busPIRone HCl [Buspar] 10 mg PO TID@0800,1400,199901/23/25 01/23/25 History guaiFENesin [Mucinex] 1,200 mg PO BID 01/23/25 01/23/25 History hydrALAZINE HCL [Apresoline] 25 mg PO BID@0800,2200 PRN 01/23/25 01/23/25 Hist ory polyethylene glycoL 3350 [Miralax] 17 gm PO DAILY@0801/23/25 01/23/25 History Allergies Allergy/AdvReac Type Severity Reaction Status Date / Time No Known Allergies Allergy Verified 01/23/25 18:21 Physical Examination Osteopathic Statement: *. No significant issues noted on an osteopathic structural exam other than those noted in the History and Physical/Consult. The patient is a 89 year old female that is no acute distress. She is alert and oriented x1. The patient's head is normocephalic and atraumatic. Exam of the cervical spine reveals no pain upon palpation or range of motion. Exam of the bilateral upper extremities reveal no obvious deformities or pain upon range of motion. Exam of the right lower extremity reveals no pain upon palpation. Exam of the left lower extremity reveals a externally rotated and shortened leg. No pain upon palpation to the lateral hip. There is pain upon logrolling and any range of motion of the leg. Bilateral calves are soft and nontender. Patient has good foot and ankle motion bilaterally. Neurological and circulatory status is intact. Results X-ray of the left hip reveals a subcapital fracture. - Labs Labs: Abnormal Lab Results - Last 24 Hours (Table) 01/23/25 01/23/25 Range/Units 17:10 17:10 WBC 10.97 H (4.50-10.00) 10*3/uL RBC 3.42 L (4.10-5.20) 10*6/uL Hgb 10.8 L (12.0-15.0) g/dL Hct 32.2 L (37.2-46.3) % Immature Gran # 0.08 H (0.00-0.04) 10*3/uL Neutrophils # 8.27 H (1.80-7.70) 10*3/uL Eosinophils # 0.03 L (0.04-0.35) 10*3/uL BUN 32 H (7-17) mg/dL Creatinine 1.49 H (0.52-1.04) mg/dL Glucose 118 H (74-99) mg/dL H & H 01/23/25 Range/Units 17:10 Hgb 10.8 L (12.0-15.0) g/dL Hct 32.2 L (37.2-46.3) % Coagulation 01/23/25 Range/Units 17:10 INR 0.9 (<1.2) Result Diagrams: 01/23/25 17:10 01/23/25 17:10 Assessment and Plan (1) Fracture of femoral neck, left Current Visit: Yes Status: Acute Code(s): S72.002A - FRACTURE OF UNSP PART OF NECK OF LEFT FEMUR, INIT SNOMED Code(s): 3569000 (2) Chronic kidney disease Current Visit: No Status: Acute Code(s): N18.9 - CHRONIC KIDNEY DISEASE, UNSPECIFIED SNOMED Code(s): 638232057 (3) Dementia Current Visit: No Status: Acute Code(s): F03.90 - UNSP DEMENTIA, UNSP SEVERITY, WITHOUT BEH/PSYCH/MOOD/ANX SNOMED Code(s): 80759520 (4) Fall Current Visit: No Status: Acute Code(s): W19.XXXA - UNSPECIFIED FALL, INITIAL ENCOUNTER SNOMED Code(s): 7797355 (5) History of right hip hemiarthroplasty Current Visit: No Status: Acute Code(s): Z96.641 - PRESENCE OF RIGHT ARTIFICIAL HIP JOINT SNOMED Code(s): 826734774 (6) Hyperlipidemia Current Visit: No Status: Acute Code(s): E78.5 - HYPERLIPIDEMIA, UNSPECIFIED SNOMED Code(s): 88216631 (7) Hypertension Current Visit: No Status: Acute Code(s): I10 - ESSENTIAL (PRIMARY) HYPERTENSION SNOMED Code(s): 64932872 Plan: The clinical and x-ray findings were discussed with the patient. The case was discussed at length with Dr. Epps. Treatment options were discussed and surgical intervention is recommended. We discussed the surgical plan as well as the expected postoperative course. Risks and benefits were reviewed including (but not limited to) the risks of infection, bleeding, blood clots, dislocation, delayed or nonunion, anesthesia-related complications and possible need for additional surgery. Questions were invited and answered. The patient expressed understanding and wishes to proceed with surgery. The patient will be kept on bedrest. Continue PRN pain management. NPO today. She is scheduled for a left hip hemiarthroplasty later this morning. Internal medicine has already cleared the patient. Patient seen and examined. Care discussed with the patient, her , and her daughter including the risks and benefits of surgery. We are all in agreement to proceed with hemiarthroplasty.
--- NOTE | 2025-01-24 13:57 | P.PN ---
Subjective Progress Note Date: 01/24/25 Hospital course: Patient is a very pleasant 89-year-old female with a past medical history hypertension, hyperlipidemia, dementia, stage IIIb CKD and osteoarthritis. She presented to the hospital on 01/23/2025 status post mechanical fall at home resulting in injury to left hip. Upon arrival to our facility, patient underwent evaluation in the emergency department. Vital signs upon arrival show blood pressure 120/73, heart rate 106, respiratory rate 19, temp 98.2 F, and SpO2 of 95% on room air. X-ray pelvis and left femur revealing a comminuted minimally displaced fracture of the subcapital left femoral neck. Chest x-ray negative for acute cardiopulmonary process. EKG completed showing sinus mechanism at 96 bpm with no noted T wave or ST abnormality showing no signs of acute ischemia upon personal review and interpretation.. Labs completed and reviewed. CBC showing leukocytosis with WBC count of 10.97, hemoglobin 10.8. BMP consistent with known stage IIIb CKD with BUN of 32, creatinine of 1.49, GFR of 31. Blood glucose 118. Liver profile unremarkable. Influenza A, influenza B, RSV, COVID PCR negative. Patient was admitted under orthopedic surgery team and we were consulted for medical clearance and medical management throughout hospitalization. Physical exam: Patient seen and fully evaluated at bedside this morning. She was resting comfortably in bed with family members at bedside. Patient slightly hard of hearing as patient's daughter removed hearing aids she did not want to have getting lost prior to patient going down for surgical procedure. Patient currently denies having any pain at rest reports pain if she tries to move her left leg. She denies having any numbness or tingling in her left leg. She admits to subacute cough stating readily coarse cough that is nonproductive beginning about 3 weeks ago. She denies having any shortness of breath, chest pain, palpitations, sore throat, recent fevers, chills, or diaphoresis. Vital signs reviewed and stable. General: Nontoxic, no distress and appears stated age. Thin and frail build. Derm: Skin warm and dry, normal coloration for ethnicity. Head: Atraumatic, normocephalic and symmetric. Eyes: EOM's intact, no lid lag, and anicteric sclera Mouth: no lip lesions, mucus membranes moist Cardiovascular: regular rate and rhythm with normal S1S2, soft systolic murmur, positive posterior tibial pulses bilaterally, and cap refill < 2 seconds. Lungs: Respirations even, regular, and unlabored on room air. Lungs CTA bilaterally, no rhonchi, no rales, no wheezing, and no accessory muscle usage. Abdominal: soft, nontender to palpation, no guarding, no appreciable organomegaly Ext: No gross muscle atrophy, no edema, no contractures. Left lower extremity positive shortening and left lateral rotation. Movement and sensation intact, range of motion in left lower extremity limited due to acute fracture. Neuro: Speech clear, face symmetrical and CN II-XII grossly intact with no noted focal neuro deficits Psych: Alert and oriented to person, place, time, and situation. Appropriate and pleasant affect. Assessment and Plan of Care: Femur fracture, subcapital left femoral neck fracture - Patient admitted under orthopedic surgery team with plans to take patient for left hip hemiarthroplasty later today with Dr. Epps - DVT prophylaxis, pain management, advancement of activity, and postoperative care per primary admitting orthopedic surgery team. Sinus tachycardia Normocytic anemia - Repeat EKG completed sinus tachycardia with a first-degree AV block. - Patient placed on telemetry monitoring. - Repeat hemoglobin - Continue gentle IV fluid hydration with 0.9% normal saline at 75 cc/h. Subacute cough - Patient reports having a rattling nonproductive cough x 3 weeks, denies any shortness of breath or chest pain. - Chest x-ray negative for acute cardiopulmonary process. - Influenza A, influenza B, RSV, and COVID PCR negative. Hypertension Monitor vital signs and continue daily medication regimen with hydralazine 25 mg twice daily and lisinopril 10 mg daily. Stage IIIb chronic kidney disease Renal function currently stable and at baseline with BUN of 32, creatinine 1.49, GFR of 31. Will continue to monitor closely with repeat a.m. labs and avoid necessary nephrotoxic medications. Hyperlipidemia Continue daily medication regimen with atorvastatin 10 mg nightly. Dementia Continue Namenda 5 mg twice daily. Data and imaging reviewed: X-ray pelvis and left femur revealing a comminuted minimally displaced fracture of the subcapital left femoral neck. Chest x-ray negative for acute cardiopulmonary process. EKG completed showing sinus mechanism at 96 bpm with no noted T wave or ST abnormality showing no signs of acute ischemia upon personal review and interpretation.. Labs completed and reviewed. CBC showing leukocytosis with WBC count of 10.97, hemoglobin 10.8. BMP consistent with known stage IIIb CKD with BUN of 32, creatinine of 1.49, GFR of 31. Blood glucose 118. Liver profile unremarkable. Influenza A, influenza B, RSV, COVID PCR negative. Vital signs reviewed. Blood pressure 131/70, heart rate 122, respiratory rate 17, temp 98.2 F, and SpO2 of 93% on 2 L. Repeat EKG was completed showing sinus tachycardia with a first-degree AV block Thank you for allowing us to participate in the care of this pleasant patient. Do not hesitate to contact us with questions. Someone can be reached from the [facility] [place] hospitalist group all hours of the day at [phone] or via [employer]. Patient was seen independently by Nurse Pracitioner. This document was prepared using [employer] dictation software. Please allow for errors in inspector line, while rare they do occur. Familia Collado NP rendered care for this patient independently, reviewed the fi ndings and plan as documented in the note above and agree with plan. I did not physically speak with or examine the patient on this date. Objective - Vital Signs Vital signs: Vital Signs Temp 98.2 F 01/24/25 02:00 Pulse 114 H 01/24/25 06:19 Resp 16 01/24/25 02:00 BP 139/75 01/24/25 06:19 Pulse Ox 96 01/24/25 02:00 FiO2 Intake & Output 01/23/25 01/24/25 01/24/25 18:59 06:59 18:59 Output Total 150 Balance -150 Weight 49.895 kg 49.895 kg Output: Urine 150 Other: Voiding Method External Catheter - Labs CBC & Chem 7: 01/23/25 17:10 01/23/25 17:10 Labs: Abnormal Lab Results - Last 24 Hours (Table) 01/23/25 01/23/25 Range/Units 17:10 17:10 WBC 10.97 H (4.50-10.00) 10*3/uL RBC 3.42 L (4.10-5.20) 10*6/uL Hgb 10.8 L (12.0-15.0) g/dL Hct 32.2 L (37.2-46.3) % Immature Gran # 0.08 H (0.00-0.04) 10*3/uL Neutrophils # 8.27 H (1.80-7.70) 10*3/uL Eosinophils # 0.03 L (0.04-0.35) 10*3/uL BUN 32 H (7-17) mg/dL Creatinine 1.49 H (0.52-1.04) mg/dL Glucose 118 H (74-99) mg/dL
[2025-01-24] MEDS ORDERED: diphenhydrAMINE 50 MG/ML 1 ML VIAL ONE (14:31)
[2025-01-24] MEDS ORDERED: TRANEXAMIC 1,000 MG/100ML-NACL PREMIX BAG ONE (14:31)
[2025-01-24] MEDS ORDERED: PROPOFOL 10 MG/ML 20 ML VIAL IV ONE (14:31)
[2025-01-24] MEDS ORDERED: MIDAZOLAM 2 MG/2 ML VIAL ONE (14:31)
[2025-01-24] MEDS ORDERED: KETAMINE HCL IN 0.9 % NACL 50 MG/5 ML SYRINGE ONE (14:31)
[2025-01-24] MEDS: SODIUM CHLORIDE 0.9% 500 ML 500 ML IV ONE ×2 (14:33→15:45)
[2025-01-24] MEDS: LACTATED RINGERS 500 ML IV ONE (14:33)
[2025-01-24] MEDS: SODIUM CHLORIDE 0.9% 100 ML with ceFAZolin 2,000 MG IV ONE (14:33)
[2025-01-24] MEDS ORDERED: MAGNESIUM HYDROXIDE 2,400 MG/30 ML CUP PO PRN (14:45)
[2025-01-24] MEDS: CITALOPRAM HYDROBROMIDE 20 MG TAB PO SCH (17:14)
[2025-01-24] MEDS: TRANEXAMIC ACID 1,000 MG in SODIUM CHLORIDE 0.9% 100 ML IVPB ONE (17:31)
--- NOTE | 2025-01-24 17:42 | XR ---
EXAMINATION TYPE: XR Hip Limited LT DATE OF EXAM: 01/24/2025 5:34 PM COMPARISON: Prior radiograph 01/22/2025. CLINICAL INDICATION: Female, 89 years old with history of Status post hip surgery, assess surgical al ignment; PHH, pain TECHNIQUE: XR Hip Limited LT; Frontal view FINDINGS: Interval postoperative changes of left hip arthroplasty with appropriate line and femoral a nd acetabular components. Right hip arthroplasty also noted. Expected soft tissue gas and edema surro unding the left hip. Lumbosacral spine degenerative changes partially visualized. IMPRESSION: Interval post surgical changes of left hip arthropathy as above. [facility], , 01/24/2025 5:40 PM
--- NOTE | 2025-01-24 17:53 | XR ---
EXAMINATION TYPE: XR pelvis AP view DATE OF EXAM: 01/24/2025 5:34 PM COMPARISON: Prior radiographs dated 01/23/2025. CLINICAL INDICATION: Female, 89 years old with history of post op alignment; PHH, pain TECHNIQUE: XR pelvis AP view, examined in a single projection. FINDINGS: Right hip arthroplasty. Interval postoperative changes of left hip arthritis. Appropriate a lignment of acetabular and femoral components. Pelvic bones appear grossly intact. Partially visualiz ed lumbosacral spine degenerative changes. Expected soft tissue gas and edema surrounding the left hi p. IMPRESSION: Postsurgical changes of left hip arthroplasty with appropriate alignment as above. [facility], , 01/24/2025 5:51 PM
[2025-01-24] MEDS: guaiFENesin SYRUP 100MG/5ML 200 MG/10 ML CUP PO PRN (17:57)
[2025-01-24] MEDS: ONDANSETRON 4 MG/2 ML VIAL IVP PRN (18:46)
--- NOTE | 2025-01-24 20:17 | P.OP ---
Date of Procedure: 01/24/25 Preoperative Diagnosis: Left femoral neck fracture Postoperative Diagnosis: same Procedure(s) Performed: Left hip hemiarthroplasty Implants: Lindsay cemented Size 4 stem 44mm bipolar head -4mm Anesthesia: spinal Surgeon: Carolynn Epps Distribution Manager #1: Dee Milan Estimated Blood Loss (ml): 100 Pathology: none sent Condition: stable Disposition: PACU Indications for Procedure: Patient had a ground level fall sustaining a displaced femoral neck fracture. She does not ambulate much at home, mostly just standing and pivoting. After discussing with the patient, her , and her daughter, we have decided to proceed with surgery for pain control and mobilization. Description of Procedure: The patient, operative extremity, and procedure were identified in the preop holding area. The patient was brought back to the OR and a spinal anesthetic was provided by the anesthesia team. They were then positioned on the OR table with a peg board positioner in a lateral decubitus position. The extremity was then prepped and draped in normal sterile fashion. A lateral approach was utilized. First a longitudinal incision was made over the greater trochanter extending proximally towards the tubercle of the iliac crest and distally along the femur. Dissection was carried down to the IT band. This was incised longitudinally just posterior to the tensor fascia gayla. A charnley retractor was inserted. Next the gluteus medius is identified and the bursa overtop was removed. The distal two thirds of the gluteus medius was transected from the trochanter leaving a tendinous cuff. The medius was then tucked under the charnley retractor to expose the capsule. A T shaped arthrotomy was performed. Fracture hematoma was evacuated. Juarez retractors were inserted along the neck and the capsule flaps were tagged. The leg was then externally rotated and the hip flexed to expose the neck. A neck cut was made about 15mm from the inferior trochanter. The femoral head was then retrieved and measured to be 46mm. The leg was placed in 90/90 position and the femoral neck elevator was inserted. The box stacker was used to remove any remaining superior neck. The starting awl was used to identify the canal followed by the lateral rasp. Serial broaches were used and a size 4 stem showed good fit. Version was matched with the [place] neck at about 15 degrees of anteversion. A standard neck and -4mm head were trialed and found to have good stability with ROM testing and minimal shuck. The canal was then prepped for cement. The canal was irrigated with pulse lavage. The cement restrictor was inserted. A lap sponge was inserted to dry the canal. A lap was placed in the acetabulum to protect from extruded cement. Once the cement was doughy, it was inserted with a cement gun. It was then finger packed into the canal and pressurized. The stem was then inserted with the collar sitting on the neck cut and in the proper version. This was held in position while the cement cured. A standard trial head was placed. Reduction showed minimal shuck and a stable joint at 90 deg flexion and 45 deg of internal and external rotation. The trial was removed and the final construct was assembled and irrigated. The capsule was repaired with ethibond suture. The gluteus medius was repaired to the greater trochanter with ethibond through the tendinous cuff as well as throu gh bone tunnels. The IT band was then repaired with a mix of ethibond and 0 vicryl. The remainder of the wound was closed in a layered fashion with 0 vicryl, 3.0 vicryl, 4.0 monocryl, and skin glue. Patient was placed in an abduction pillow, aroused by the anesthesia team, and brought back to PACU in stable condition.
[2025-01-24] MEDS: ASPIRIN 81 MG PO SCH (21:59)
[2025-01-24] MEDS: SENNOSIDES-DOCUSATE SODIUM 1 EACH TAB PO SCH (21:59)
--- NOTE | 2025-01-24 22:11 | XR ---
EXAMINATION TYPE: XR Hip Limited LT DATE OF EXAM: 01/24/2025 10:01 PM COMPARISON: Multiple prior same-day radiographs. CLINICAL INDICATION: Female, 89 years old with history of postop lateral; PHH, pain TECHNIQUE: XR Hip Limited LT; Frontal view FINDINGS: Left hip arthroplasty without periprosthetic lucency or fracture. Expected soft tissue gas and edema surrounding the left hip. IMPRESSION: Left hip arthroplasty as above. [facility], , 01/24/2025 10:08 PM
[2025-01-24] MEDS: hydrALAZINE HCL 25 MG TAB PO SCH (22:58)
[2025-01-24] MEDS: DOXYCYCLINE 100 MG TABLET PO SCH (22:59)
[2025-01-25] MEDS: HYDROcodone/APAP 5-325MG 1 EACH TAB PO PRN (05:38)
--- NOTE | 2025-01-25 09:02 | P.PN ---
Subjective Progress Note Date: 01/25/25 Principal diagnosis: Status post left hip hemiarthroplasty This is a 89 year-old female post left hip hemiarthroplasty. This is post-op day 1. The patient was evaluated at the bedside today. The patient is very sleepy this morning but opens her eyes with verbal stimulation. The patient has not been up with physical therapy. Objective - Vital Signs Vital signs: Vital Signs Temp 98.8 F 01/25/25 06:58 Pulse 114 H 01/25/25 06:58 Resp 19 01/25/25 06:58 BP 93/53 01/25/25 06:58 Pulse Ox 91 L 01/25/25 06:58 FiO2 Intake & Output 01/24/25 01/25/25 01/25/25 18:59 06:59 18:59 Intake Total 700 250 Output Total 850 300 Balance -150 -50 Intake: IV 700 Oral 0 250 Output: Urine 750 300 Estimated Blood Loss 100 Other: Voiding Method Incontinent External Catheter # Bowel Movements 1 - Exam The patient does not appear in acute distress. Sleeping but opens eyes when speaking to her. Dressing is clean dry and intact. Incision appears fine with no erythema or active drainage. Calf is soft and nontender. Able to wiggle toes without difficulty. Sensation and circulatory status is intact. - Labs CBC & Chem 7: 01/23/25 17:10 01/23/25 17:10 Assessment and Plan (1) Fracture of femoral neck, left Current Visit: Yes Status: Acute Code(s): S72.002A - FRACTURE OF UNSP PART OF NECK OF LEFT FEMUR, INIT SNOMED Code(s): 5848932 (2) Chronic kidney disease Current Visit: No Status: Acute Code(s): N18.9 - CHRONIC KIDNEY DISEASE, UNSPECIFIED SNOMED Code(s): 392726133 (3) Dementia Current Visit: No Status: Acute Code(s): F03.90 - UNSP DEMENTIA, UNSP SEVERITY, WITHOUT BEH/PSYCH/MOOD/ANX SNOMED Code(s): 14093063 (4) Fall Current Visit: No Status: Acute Code(s): W19.XXXA - UNSPECIFIED FALL, INITIAL ENCOUNTER SNOMED Code(s): 7313394 (5) History of right hip hemiarthroplasty Current Visit: No Status: Acute Code(s): Z96.641 - PRESENCE OF RIGHT ARTIFICIAL HIP JOINT SNOMED Code(s): 869416739 (6) Hyperlipidemia Current Visit: No Status: Acute Code(s): E78.5 - HYPERLIPIDEMIA, UNSPECIFIED SNOMED Code(s): 01658275 (7) Hypertension Current Visit: No Status: Acute Code(s): I10 - ESSENTIAL (PRIMARY) HYPERTENSION SNOMED Code(s): 72074225 Plan: 1. Continue pain control 2. Anticoagulation with Aspirin 81 mg BID 3. Start physical therapy and transfer to chair 4. Anticipate discharge to skilled rehab vs. assisted living
[2025-01-25] MEDS: lisinopriL 10 MG TAB PO SCH (10:02)
[2025-01-25] MEDS: polyethylene glycoL 3350 17 GM POWD.PACK PO SCH (10:09)
[2025-01-25 10:24] LABS: ALT 20 U/L (8-44); AST 48 U/L (13-35); Albumin 3.2 g/dL (3.8-4.9); Albumin/Globulin Ratio 1.19 Ratio (1.60-3.17); Alkaline Phosphatase 55 U/L (41-126); BUN/Creat Ratio 16.13 Ratio (12.00-20.00); Blood Urea Nitrogen 24.2 mg/dL (9.0-27.0); Calcium 7.9 mg/dL (8.7-10.3); Carbon Dioxide 18.9 mmol/L (21.6-31.8); Chloride 109 mmol/L (96-109); Globulin 2.7 g/dL (1.6-3.3); Glucose 126 mg/dL (70-110); Magnesium 1.7 mg/dL (1.5-2.4); Potassium 4.3 mmol/L (3.5-5.5); Sodium 139 mmol/L (135-145); Total Bilirubin <0.2 mg/dL (0.3-1.2); Total Protein 5.9 g/dL (6.2-8.2)
[2025-01-25 10:26] LABS: HCT 29.9 % (37.2-46.3); MCH 31.1 pg (27.0-32.0); MCHC 30.1 g/dL (32.0-37.0); MCV 103.5 FL (80.0-97.0); NRBC Per 100 WBC 0 X 10*3/uL (0.00-0.01); Platelet Count 147 X 10*3/uL (140-440); RBC 2.89 X 10*6/uL (4.10-5.20); RDW 14.6 % (11.5-14.5); WBC 22.84 X 10*3/uL (4.50-10.00)
[2025-01-25 11:31] LABS: Basophils # (A) 0.07 X 10*3/uL (0.00-0.10); Basophils % (A) 0.3 %; Crenated RBC 2+ (None Seen); Eosinophils # (A) 0.15 X 10*3/uL (0.04-0.35); Eosinophils % (A) 0.7 %; Lymphocytes # (A) 1.23 X 10*3/uL (0.90-5.00); Lymphocytes % (A) 5.4 %; Macrocytosis (M) 2+ (None Seen); Monocytes # (A) 1.95 X 10*3/uL (0.20-1.00); Monocytes % (A) 8.5 %; Neutrophils # (A) 19.26 X 10*3/uL (1.80-7.70); Neutrophils % (A) 84.3 %
[2025-01-25] MEDS ORDERED: IPRATROPIUM-ALBUTEROL 3 ML NEB INHALATION PRN (15:03)
--- NOTE | 2025-01-25 15:14 | P.PN ---
Subjective Progress Note Date: 01/25/25 Hospital course: Patient is a very pleasant 89-year-old female with a past medical history hypertension, hyperlipidemia, dementia, stage IIIb CKD and osteoarthritis. She presented to the hospital on 01/23/2025 status post mechanical fall at home resulting in injury to left hip. Upon arrival to our facility, patient underwent evaluation in the emergency department. Vital signs upon arrival show blood pressure 120/73, heart rate 106, respiratory rate 19, temp 98.2 F, and Sp O2 of 95% on room air. X-ray pelvis and left femur revealing a comminuted minimally displaced fracture of the subcapital left femoral neck. Chest x-ray negative for acute cardiopulmonary process. EKG completed showing sinus mechanism at 96 bpm with no noted T wave or ST abnormality showing no signs of acute ischemia upon personal review and interpretation.. Labs completed and reviewed. CBC showing leukocytosis with WBC count of 10.97, hemoglobin 10.8. BMP consistent with known stage IIIb CKD with BUN of 32, creatinine of 1.49, GFR of 31. Blood glucose 118. Liver profile unremarkable. Influenza A, influenza B, RSV, COVID PCR negative. Patient was admitted under orthopedic surgery team and we were consulted for medical clearance and medical management throughout hospitalization. Physical exam: Patient seen and fully evaluated at bedside this morning. She is postoperative day 1. She reports doing well and states that her pain is controlled. Patient does have postoperative hypoxia and currently requiring oxygen supplementation. She denies shortness of breath, chest pain, palpitations, dizziness, lightheadedness or any other complaints at this time. Vital signs reviewed and stable. General: Nontoxic, no distress and appears stated age. Thin and frail build. Derm: Skin warm and dry, normal coloration for ethnicity. Head: Atraumatic, normocephalic and symmetric. Eyes: EOM's intact, no lid lag, and anicteric sclera Mouth: no lip lesions, mucus membranes moist Cardiovascular: regular rate and rhythm with normal S1S2, soft systolic murmur, positive posterior tibial pulses bilaterally, and cap refill < 2 seconds. Lungs: Respirations even, regular, and unlabored on room air. Lungs CTA bilaterally, no rhonchi, no rales, no wheezing, and no accessory muscle usage. Abdominal: soft, nontender to palpation, no guarding, no appreciable o rganomegaly Ext: No gross muscle atrophy, no edema, no contractures. Left lower extremity positive shortening and left lateral rotation. Movement and sensation intact, range of motion in left lower extremity limited due to acute fracture. Neuro: Speech clear, face symmetrical and CN II-XII grossly intact with no noted focal neuro deficits Psych: Alert and oriented to person, place, time, and situation. Appropriate and pleasant affect. Assessment and Plan of Care: Status post left hip hemiarthroplasty Femur fracture, subcapital left femoral neck fracture - DVT prophylaxis, pain management, wound/dressing management, weightbearing, and PT/OT per primary admitting orthopedic surgery team.. Postoperative hypoxia Subacute cough X 3 weeks -Oxygenation to be administered and titrated as needed to maintain SPO2 equal to or greater than 92% -Telemetry monitoring. -Monitor pulse-oximetry -Duonebs scheduled 4 times daily and as needed for SOB and/or wheezing -Incentive Spirometry -Chest x-ray upon admission negative for acute cardiopulmonary process. Influenza A, influenza B, RSV, and COVID PCR were negative. -Order placed for repeat chest x-ray Sinus tachycardia Acute postoperative blood loss anemia Postoperative leukocytosis Abnormal differential revealing positive crenated cells, likely secondary to dehydration - Acute postoperative blood loss anemia is a stable and expected finding with preoperative hemoglobin of 10.8 and postoperative hemoglobin of 9.0. Will continue to monitor closely with repeat a.m. labs. - Continue telemetry monitoring. - Continue gentle IV fluid hydration with 0.9% normal saline at 75 cc/h. Hypertension Monitor vital signs and continue daily medication regimen with hydralazine 25 mg twice daily and lisinopril 10 mg daily. Stage IIIb chronic kidney disease Renal function currently stable and at baseline with BUN of 24.2, creatinine 1.5, GFR of 33. Will continue to monitor closely with repeat a.m. labs and avoid necessary nephrotoxic medications. Hyperlipidemia Continue daily medication regimen with atorvastatin 10 mg nightly. Dementia Continue Namenda 5 mg twice daily. Severe protein calorie malnutrition with BMI of 18.9 kg/m Low total protein of 5.9 and albumin of 3.2. -Patient started on protein supplements 3 times daily between meals. Data and imaging reviewed: Labs completed and reviewed. CBC showing leukocytosis with WBC count of 22.84, hemoglobin 9.0, hematocrit 29.9, MCV 103.5, MCHC of 30.1, and RDW of 14.6 with elevated MPV of 13.0 and differential positive for macrocytosis and crenated cells. BMP showing hypocarbia with bicarb of 18.9 and renal function consistent with known stage IIIb CKD with BUN 24.2, creatinine 1.5, GFR of 33. Blood glucose 126. Magnesium slightly low at 1.7. Liver profile showing elevated AST of 48. Total protein low at 5.9 and albumin of 3.2. Vital signs reviewed. Blood pressure running soft this morning at 93/53 with heart rate of 114, respiratory rate 19, temp 98.8 F, and SpO2 of 91% on 3 L. Thank you for allowing us to participate in the care of this pleasant patient. Do not hesitate to contact us with questions. Someone can be reached from the [facility] hospitalist group all hours of the day at [phone] or via [employer]. Patient was seen independently by Nurse Pracitioner. This document was prepared using [employer] dictation software. Please allow for errors in director of compensation, while rare they do occur. Familia Collado NP rendered care for this patient independently, reviewed the findings and plan as documented in the note above and agree with plan. I did not physically speak with or examine the patient on this date. Objective - Vital Signs Vital signs: Vital Signs Temp 98.8 F 01/25/25 06:58 Pulse 114 H 01/25/25 06:58 Resp 19 01/25/25 06:58 BP 93/53 01/25/25 06:58 Pulse Ox 91 L 01/25/25 06:58 FiO2 Intake & Output 01/24/25 01/25/25 01/25/25 18:59 06:59 18:59 Intake Total 700 250 Output Total 850 300 Balance -150 -50 Intake: IV 700 Oral 0 250 Output: Urine 750 300 Estimated Blood Loss 100 Other: Voiding Method Incontinent External Catheter # Bowel Movements 1 - Labs CBC & Chem 7: 01/25/25 02:15 01/25/25 02:15
--- NOTE | 2025-01-25 15:47 | XR ---
EXAMINATION TYPE: XR chest 1V portable DATE OF EXAM: 01/25/2025 2:28 PM COMPARISON: 01/23/2025 CLINICAL INDICATION: Female, 89 years old with history of hypoxia, TECHNIQUE: XR chest 1V portable view(s) obtained. FINDINGS: The heart size is normal. The pulmonary vasculature is somewhat prominent. The lungs are clear. IMPRESSION: 1. No acute pulmonary process. 2. Borderline prominence of perivascular markings. [facility], , 01/25/2025 3:45 PM
[2025-01-25 15:51] VITALS: BMI 18.8
[2025-01-25] MEDS: IPRATROPIUM-ALBUTEROL 3 ML NEB INHALATION SCH (16:25)
[2025-01-26] MEDS: OLANZapine 10 MG VIAL IM PRN (04:10)
[2025-01-26] MEDS: OLANZapine 10 MG VIAL IM STA (04:38)
[2025-01-26 09:39] LABS: HCT 22.9 % (37.2-46.3); MCH 31.2 pg (27.0-32.0); MCHC 31.4 g/dL (32.0-37.0); MCV 99.1 fL (80.0-97.0); Mean Platelet Volume 12.9 fL (9.5-12.2); Platelet Count 114 10*3/uL (140-440); RBC 2.31 10*6/uL (4.10-5.20); RDW 14.9 % (11.5-14.5)
[2025-01-26] MEDS: FAMOTIDINE 20 MG TAB PO SCH (09:39)
[2025-01-26 09:54] LABS: ALT 8 U/L (4-34); AST 43 U/L (14-36); African American GFR (CKD) 35 (>60 ml/min/1.73 sqM); Albumin 2.6 g/dL (3.5-5.0); Alkaline Phosphatase 59 U/L (38-126); Anion Gap 7 mmol/L; Blood Urea Nitrogen 30 mg/dL (7-17); Calcium 8.1 mg/dL (8.4-10.2); Carbon Dioxide 20 mmol/L (22-30); Chloride 113 mmol/L (98-107); Globulin 2.6 g/dL; Glucose 108 mg/dL (74-99); HGB 7.2 g/dL (12.0-15.0); Magnesium 1.7 mg/dL (1.6-2.3); Non-African American GFR(CKD) 31 (>60 ml/min/1.73 sqM); Potassium 3.7 mmol/L (3.5-5.1); Sodium 140 mmol/L (137-145); Total Bilirubin 0.4 mg/dL (0.2-1.3); Total Protein 5.2 g/dL (6.3-8.2)
--- NOTE | 2025-01-26 12:31 | P.PN ---
Subjective Progress Note Date: 01/26/25 Principal diagnosis: Status post left hip hemiarthroplasty This is a 89 year-old female post left hip hemiarthroplasty. This is post-op day 2 The patient was evaluated at the bedside today with family present. Her oxygen levels were dipping below 90% on nasal cannula and she was placed on a simple mask. She was more confused and agitated last night and pulling on her IV and villar. The patient appears more calm this afternoon. Her hemoglobin was 7.2 this morning. Possible discharge to her [facility] tomorrow depending her oxygen levels. Objective - Vital Signs Vital signs: Vital Signs Temp 98.3 F 01/26/25 00:39 Pulse 72 01/26/25 10:14 Resp 18 01/26/25 06:38 BP 119/61 01/26/25 06:38 Pulse Ox 94 L 01/26/25 06:38 FiO2 35 01/26/25 10:15 Intake & Output 01/25/25 01/26/25 01/26/25 18:59 06:59 18:59 Output Total 400 Balance -400 Weight 49.895 kg Output: Urine 400 Uretheral (Villar) 400 Other: Voiding Method Incontinent Indwelling Catheter External Catheter - Exam The patient does not appear in acute distress. Alert and oriented x1. Dressing is clean dry and intact. Incision appears fine with no erythema or active drainage. Calf is soft and nontender. Able to wiggle toes without difficulty. Sensation and circulatory status is intact. - Labs CBC & Chem 7: 01/26/25 08:42 01/26/25 08:42 Labs: Abnormal Lab Results - Last 24 Hours (Table) 01/26/25 01/26/25 Range/Units 08:42 08:42 WBC 15.50 H (4.50-10.00) 10*3/uL RBC 2.31 L (4.10-5.20) 10*6/uL Hgb 7.2 L D (12.0-15.0) g/dL Hct 22.9 L (37.2-46.3) % MCV 99.1 H (80.0-97.0) fL MCHC 31.4 L (32.0-37.0) g/dL RDW 14.9 H (11.5-14.5) % Plt Count 114 L (140-440) 10*3/uL MPV 12.9 H (9.5-12.2) fL Chloride 113 H (98-107) mmol/L Carbon Dioxide 20 L (22-30) mmol/L BUN 30 H (7-17) mg/dL Creatinine 1.51 H (0.52-1.04) mg/dL Glucose 108 H (74-99) mg/dL Calcium 8.1 L (8.4-10.2) mg/dL AST 43 H (14-36) U/L Total Protein 5.2 L (6.3-8.2) g/dL Albumin 2.6 L (3.5-5.0) g/dL Assessment and Plan (1) Fracture of femoral neck, left Current Visit: Yes Status: Acute Code(s): S72.002A - FRACTURE OF UNSP PART OF NECK OF LEFT FEMUR, INIT SNOMED Code(s): 3231525 (2) Chronic kidney disease Current Visit: No Status: Acute Code(s): N18.9 - CHRONIC KIDNEY DISEASE, UNSPECIFIED SNOMED Code(s): 314351900 (3) Dementia Current Visit: No Status: Acute Code(s): F03.90 - UNSP DEMENTIA, UNSP SEVERITY, WITHOUT BEH/PSYCH/MOOD/ANX SNOMED Code(s): 38683532 (4) Fall Current Visit: No Status: Acute Code(s): W19.XXXA - UNSPECIFIED FALL, INITIAL ENCOUNTER SNOMED Code(s): 6459706 (5) History of right hip hemiarthroplasty Current Visit: No Status: Acute Code(s): Z96.641 - PRESENCE OF RIGHT ARTIFICIAL HIP JOINT SNOMED Code(s): 855870775 (6) Hyperlipidemia Current Visit: No Status: Acute Code(s): E78.5 - HYPERLIPIDEMIA, UNSPECIFIED SNOMED Code(s): 89830344 (7) Hypertension Current Visit: No Status: Acute Code(s): I10 - ESSENTIAL (PRIMARY) HYPERTENSION SNOMED Code(s): 08330542 Plan: 1. Continue pain control 2. Tranfuse with 1 unit of PRBCs today for hemoglobin of 7.2 3. Anticoagulation with Aspirin 81 mg BID 4. Continue physical therapy and transfer to chair. 5. Discontinue villar today. 6. Anticipate discharge to assisted living in the next 1-2 days, depending on oxygen levels.
--- NOTE | 2025-01-26 15:08 | P.PN ---
Subjective Progress Note Date: 01/26/25 Hospital course: Patient is a very pleasant 89-year-old female with a past medical history hypertension, hyperlipidemia, dementia, stage IIIb CKD and osteoarthritis. She presented to the hospital on 01/23/2025 status post mechanical fall at home resulting in injury to left hip. Upon arrival to our facility, patient underwent evaluation in the emergency department. Vital signs upon arrival show blood pressure 120/73, heart rate 106, respiratory rate 19, temp 98.2 F, and Sp O2 of 95% on room air. X-ray pelvis and left femur revealing a comminuted minimally displaced fracture of the subcapital left femoral neck. Chest x-ray negative for acute cardiopulmonary process. EKG completed showing sinus mechanism at 96 bpm with no noted T wave or ST abnormality showing no signs of acute ischemia upon personal review and interpretation.. Labs completed and reviewed. CBC showing leukocytosis with WBC count of 10.97, hemoglobin 10.8. BMP consistent with known stage IIIb CKD with BUN of 32, creatinine of 1.49, GFR of 31. Blood glucose 118. Liver profile unremarkable. Influenza A, influenza B, RSV, COVID PCR negative. Patient was admitted under orthopedic surgery team and we were consulted for medical clearance and medical management throughout hospitalization. Physical exam: Patient seen and fully evaluated at bedside this morning. She is postoperative day 2. She was resting comfortably in bed with Venturi mask at time of assessme nt. Per patient's daughter at bedside stated patient was doing well on nasal cannula but is a mouth breather and her oxygen levels did drop a little bit this morning so she requested Venturi mask to be placed and respiratory therapist agreed. Patient was drowsy this morning and very sleepy, patient's daughter states that she just fell asleep after having a very difficult night due to her dementia and being in the hospital. Vital signs reviewed and stable. General: Nontoxic, no distress and appears stated age. Thin and frail build. Derm: Skin warm and dry, normal coloration for ethnicity. Head: Atraumatic, normocephalic and symmetric. Eyes: EOM's intact, no lid lag, and anicteric sclera Mouth: no lip lesions, mucus membranes moist Cardiovascular: regular rate and rhythm with normal S1S2, soft systolic murmur, positive posterior tibial pulses bilaterally, and cap refill < 2 seconds. Lungs: Respirations even, regular, and unlabored on supplemental oxygen. Lungs CTA bilaterally, no rhonchi, no rales, no wheezing, and no accessory muscle usage. Abdominal: soft, nontender to palpation, no guarding, no appreciable organomegaly Ext: No gross muscle atrophy, no edema, no contractures. Movement and sensation intact. Postoperative dressing left lateral hip Neuro: Speech clear, face symmetrical and CN II-XII grossly intact with no noted focal neuro deficits Psych: Alert and oriented to person, place, time, and situation. Appropriate and pleasant affect. Assessment and Plan of Care: Status post left hip hemiarthroplasty Femur fracture, subcapital left femoral neck fracture - DVT prophylaxis, pain management, wound/dressing management, weightbearing, and PT/OT per primary admitting orthopedic surgery team.. Acute postoperative blood loss anemia, greater than expected Thrombocytopenia Sinus tachycardia Postoperative leukocytosis Abnormal differential revealing positive crenated cells, likely secondary to dehydration - Acute postoperative blood loss anemia greater than expected with preoperative hemoglobin of 10.8 and hemoglobin currently 7.2. No signs of active bleeding noted at this time. Patient to receive 1 unit PRBCs and we will continue to monitor hemoglobin levels closely and transfuse as needed for symptomatic anemia and/or hemoglobin less than 7. - Continue telemetry monitoring. - Continue gentle IV fluid hydration with 0.9% normal saline at 75 cc/h. Postoperative hypoxia Subacute cough X 3 weeks -Oxygenation to be administered and titrated as needed to maintain SPO2 equal to or greater than 92% -Telemetry monitoring. -Monitor pulse-oximetry -Duonebs scheduled 4 times daily and as needed for SOB and/or wheezing -Incentive Spirometry -Chest x-ray upon admission negative for acute cardiopulmonary process. Repeat chest x-ray completed 01/25/2025 also negative for acute cardiopulmonary process -Influenza A, influenza B, RSV, and COVID PCR were negative. Hypertension Monitor vital signs and continue daily medication regimen with hydralazine 25 mg twice daily and lisinopril 10 mg daily. Stage IIIb chronic kidney disease Renal function currently stable and at baseline with BUN of 30.0, creatinine 1.51, GFR of 31. Will continue to monitor closely with repeat a.m. labs and avoid necessary nephrotoxic medications. Hyperlipidemia Continue daily medication regimen with atorvastatin 10 mg nightly. Dementia Continue Namenda 5 mg twice daily. Severe protein calorie malnutrition with BMI of 18.9 kg/m Low total protein of 5.9 and albumin of 3.2. -Patient started on protein supplements 3 times daily between meals. Data and imaging reviewed: Labs completed and reviewed. CBC showing acute postoperative blood loss anemia greater than expected with hemoglobin of 7.2 with preoperative hemoglobin of 10.8. Patient receiving 1 unit PRBCs. BMP showing metabolic acidosis with chloride of 113, bicarb of 20, and anion gap of 7, BUN of 30, creatinine 1.51, GFR of 31. Blood glucose 108. Magnesium slightly low at 1.7. Vital signs reviewed. Blood pressure 119/61, heart rate 107, respiratory rate 18, and SpO2 of 94% on 2 L. Thank you for allowing us to participate in the care of this pleasant patient. Do not hesitate to contact us with questions. Someone can be reached from the [facility] hospitalist group all hours of the day at [phone] or via [employer]. Patient was seen independently by Nurse Pracitioner. This document was prepared using [employer] dictation software. Please allow for errors in workers compensation claims specialist, while rare they do occur. Familia Collado NP rendered care for this patient independently, reviewed the findings and plan as documented in the note above and agree with plan. I did not physically speak with or examine the patient on this date. Objective - Vital Signs Vital signs: Vital Signs Temp 98.3 F 01/26/25 00:39 Pulse 107 H 01/26/25 06:38 Resp 18 01/26/25 06:38 BP 119/61 01/26/25 06:38 Pulse Ox 94 L 01/26/25 06:38 FiO2 Intake & Output 01/25/25 01/26/25 01/26/25 18:59 06:59 18:59 Output Total 400 Balance -400 Weight 49.895 kg Output: Urine 400 Uretheral (Tamez) 400 Other: Voiding Method Incontinent Indwelling Catheter External Catheter - Labs CBC & Chem 7: 01/26/25 08:42 01/26/25 08:42 Labs: Abnormal Lab Results - Last 24 Hours (Table) 01/25/25 01/25/25 Range/Units 02:15 02:15 WBC 22.84 H (4.50-10.00) X 10*3/uL RBC 2.89 L (4.10-5.20) X 10*6/uL Hgb 9.0 L (12.0-15.0) g/dL Hct 29.9 L (37.2-46.3) % MCV 103.5 H (80.0-97.0) FL MCHC 30.1 L (32.0-37.0) g/dL RDW 14.6 H (11.5-14.5) % MPV 13.0 H (9.5-12.2) FL Immature Gran # 0.18 H (0.00-0.04) X 10*3/uL Neutrophils # 19.26 H (1.80-7.70) X 10*3/uL Monocytes # 1.95 H (0.20-1.00) X 10*3/uL Macrocytosis (manual) 2+ A (None Seen) Crenated Cell 2+ A (None Seen) Carbon Dioxide 18.9 L (21.6-31.8) mmol/L Est GFR (CKD-EPI) 33 L (>=60) Glucose 126 H (70-110) mg/dL Calcium 7.9 L (8.7-10.3) mg/dL Total Bilirubin <0.2 L (0.3-1.2) mg/dL AST 48 H (13-35) U/L Total Protein 5.9 L (6.2-8.2) g/dL Albumin 3.2 L (3.8-4.9) g/dL Albumin/Globulin Ratio 1.19 L (1.60-3.17) Ratio
[2025-01-26] MEDS: MAGNESIUM SULFATE-D5W PMX 1 GM in DEXTROSE/WATER 1 100ML.BAG IVPB SCH (19:43)
[2025-01-26] MEDS: ACETAMINOPHEN IV (For NPO) 1,000 MG in EMPTY BAG 1 BAG IVPB SCH (19:45)
[2025-01-27 08:36] LABS: Magnesium 2.5 mg/dL (1.5-2.4)
[2025-01-27 08:39] LABS: ALT 22 U/L (8-44); AST 48 U/L (13-35); Albumin 2.6 g/dL (3.8-4.9); Albumin/Globulin Ratio 1.18 Ratio (1.60-3.17); Alkaline Phosphatase 74 U/L (41-126); BUN/Creat Ratio 23.27 Ratio (12.00-20.00); Blood Urea Nitrogen 34.9 mg/dL (9.0-27.0); Calcium 7.8 mg/dL (8.7-10.3); Carbon Dioxide 19.7 mmol/L (21.6-31.8); Chloride 114 mmol/L (96-109); Globulin 2.2 g/dL (1.6-3.3); Glucose 101 mg/dL (70-110); Potassium 4.2 mmol/L (3.5-5.5); Sodium 142 mmol/L (135-145); Total Bilirubin 0.2 mg/dL (0.3-1.2); Total Protein 4.8 g/dL (6.2-8.2)
[2025-01-27 12:12] LABS: Basophils # (A) 0.03 X 10*3/uL (0.00-0.10); Basophils % (A) 0.3 %; Eosinophils # (A) 0.44 X 10*3/uL (0.04-0.35); Eosinophils % (A) 3.8 %; HCT 25.1 % (37.2-46.3); HGB 7.7 g/dL (12.0-15.0); Lymphocytes # (A) 1.18 X 10*3/uL (0.90-5.00); Lymphocytes % (A) 10.2 %; MCH 30.1 pg (27.0-32.0); MCHC 30.7 g/dL (32.0-37.0); Mean Platelet Volume 12.7 FL (9.5-12.2); Monocytes # (A) 1.46 X 10*3/uL (0.20-1.00); Monocytes % (A) 12.6 %; NRBC Per 100 WBC 0 X 10*3/uL (0.00-0.01); Neutrophils # (A) 8.41 X 10*3/uL (1.80-7.70); Neutrophils % (A) 72.5 %; Platelet Count 110 X 10*3/uL (140-440); RBC 2.56 X 10*6/uL (4.10-5.20); WBC 11.59 X 10*3/uL (4.50-10.00)
--- NOTE | 2025-01-27 13:16 | P.DS ---
Providers Date of admission: 01/23/25 16:57 Expected date of discharge: 01/27/25 Attending physician: Carolynn Epsp Consults: 01/23/25 16:52 Consult Physician Routine Consulting Provider: Yovany Benavides Consult Reason/Comments: Medical management, left hip fracture Do you want consulting provider notified?: Yes Primary care physician: Juan C Low - Discharge Diagnosis(es) (1) Fracture of femoral neck, left Current Visit: Yes Status: Acute (2) Chronic kidney disease Current Visit: No Status: Acute (3) Dementia Current Visit: No Status: Acute (4) Fall Current Visit: No Status: Acute (5) History of right hip hemiarthroplasty Current Visit: No Status: Acute (6) Hyperlipidemia Current Visit: No Status: Acute (7) Hypertension Current Visit: No Status: Acute Hospital Course: This is a 89 year old female who presented to the hospital post fall at her assisted living facility and sustained a left hip fracture. The patient was cleared by internal medicine for surgery. The patient underwent a left hip hemiarthroplasty on 01/24/[address] Epps. The procedure was performed without complication or sequelae. The patient is doing well postoperatively. Labs and vital signs are stable on the day of discharge. On the day of discharge the patient's hip incision is healing well. There is minimal erythema. There is no drainage noted at this time. There is minimal soft tissue swelling to the hip and thigh. The patient has full foot and ankle motion without difficulty or pain. Neurovascular status to the left lower extremity is intact. Her hemoglobin is 7.7 today. She received one unit of PRBCs yesterday. An order was placed for a repeat CBC in 2 days. The patient is discharged back to assisted living facility in stable condition. See medication reconciliation for accurate list of discharge medications. Pertinent Studies: Laboratory Tests 01/27/25 02:37 WBC 11.59 H RBC 2.56 L Hgb 7.7 L Hct 25.1 L Patient Condition at Discharge: Stable Plan - Discharge Summary Discharge Rx Participant: No New Discharge Prescriptions: New Aspirin 81 mg PO BID #60 tab HYDROcodone/APAP 5-325MG [Brickeys 5] 1 each PO Q6HR PRN #30 tab PRN Reason: Pain Sennosides-Docusate Sodium [Senokot-S] 2 tab PO DAILY #30 tablet No Action Simvastatin [Zocor] 20 mg PO HS@1999 Memantine [Namenda] 5 mg PO BID@08,1999 hydrALAZINE HCL [Apresoline] 25 mg PO BID@0800,2200 PRN PRN Reason: SBP over 140 Melatonin 3 mg PO HS@1999 busPIRone HCl [Buspar] 10 mg PO TID@0800,1399,1999 Enalapril [Vasotec] 5 mg PO DAILY@0800 Famotidine [Pepcid] 20 mg PO BID@08,1999 guaiFENesin [Mucinex] 1,200 mg PO BID Doxycycline Hyclate 100 mg PO BID@08,1999 polyethylene glycoL 3350 [Miralax] 17 gm PO DAILY@0800 HYDROcodone/APAP 5-325MG [Brickeys 5-325] 1 tab PO BID@08,1999 PRN PRN Reason: Pain Aspirin EC [Ecotrin Low Dose] 81 mg PO DAILY@0800 Citalopram Hydrobromide [CeleXA] 20 mg PO DAILY@0800 Discharge Medication List Famotidine [Pepcid] 20 mg PO BID@0800,199912/16/23 [History] Memantine [Namenda] 5 mg PO BID@0800,199912/16/23 [History] Simvastatin [Zocor] 20 mg PO HS@199912/16/23 [History] Aspirin EC [Ecotrin Low Dose] 81 mg PO DAILY@0800 01/23/25 [History] Citalopram Hydrobromide [CeleXA] 20 mg PO DAILY@0800 01/23/25 [History] Doxycycline Hyclate 100 mg PO BID@0800,199901/23/25 [History] Enalapril [Vasotec] 5 mg PO DAILY@0800 01/23/25 [History] HYDROcodone/APAP 5-325MG [Brickeys 5-325] 1 tab PO BID@799,1999 PRN 01/23/25 [History] Melatonin 3 mg PO HS@199901/23/25 [History] busPIRone HCl [Buspar] 10 mg PO TID@0800,1400,199901/23/25 [History] guaiFENesin [Mucinex] 1,200 mg PO BID 01/23/25 [History] hydrALAZINE HCL [Apresoline] 25 mg PO BID@0800,2200 PRN 01/23/25 [History] polyethylene glycoL 3350 [Miralax] 17 gm PO DAILY@0800 01/23/25 [History] HYDROcodone/APAP 5-325MG [Brickeys 5] 1 each PO Q6HR PRN #30 tab 01/26/25 [Rx] Aspirin 81 mg PO BID #60 tab 01/27/25 [Rx] Sennosides-Docusate Sodium [Senokot-S] 2 tab PO DAILY #30 tablet 01/27/25 [Rx] Follow up Appointment(s)/Referral(s): Juan C Low MD [Primary Care Provider] - 1-2 days Carolynn Epps [Doctor of Osteopathic Medicine] - 2 Weeks Home Health,Aliyah Barrera [NON-STAFF] - 1-2 Days ([facility] will call you to schedule your in home nursing, physical therapy, and occupational therapy visits. ) Ambulatory/Diagnostic Orders: Complete Blood Count w/diff [LAB.AMB] Time Frame: 2 Days, Location: None Selected Activity/Diet/Wound Care/Special Instructions: Patient requires a hospital bed because she requires the head of the bed to be 30 degrees or more most of the time to alleviate pain from the left hip fracture. Keep Optifoam dressing in place for 7 days unless saturated. After 7 days, remove dressing and apply dry 4x4s and paper tape. PT - WBAT with walker and assistance. Use pain medication as directed. Continue Aspirin 81 mg BID for 4 weeks. Repeat CBC in 2-3 days. Follow up outpatient with Dr. Epps in 2 weeks -- call for appointment. Call [facility] with questions or concerns. Discharge Disposition: HOME WITH HOME HEALTH SERVICES
[2025-01-27 14:27] VITALS: BP 106/56; PULSE 112; RESP 17; TEMP 97.6
--- NOTE | 2025-01-27 14:37 | P.PN ---
Subjective Progress Note Date: 01/27/25 Hospital course: Patient is a very pleasant 89-year-old female with a past medical history hypertension, hyperlipidemia, dementia, stage IIIb CKD and osteoarthritis. She presented to the hospital on 01/23/2025 status post mechanical fall at home resulting in injury to left hip. Upon arrival to our facility, patient underwent evaluation in the emergency department. Vital signs upon arrival show blood pressure 120/73, heart rate 106, respiratory rate 19, temp 98.2 F, and Sp O2 of 95% on room air. X-ray pelvis and left femur revealing a comminuted minimally displaced fracture of the subcapital left femoral neck. Chest x-ray negative for acute cardiopulmonary process. EKG completed showing sinus mechanism at 96 bpm with no noted T wave or ST abnormality showing no signs of acute ischemia upon personal review and interpretation.. Labs completed and reviewed. CBC showing leukocytosis with WBC count of 10.97, hemoglobin 10.8. BMP consistent with known stage IIIb CKD with BUN of 32, creatinine of 1.49, GFR of 31. Blood glucose 118. Liver profile unremarkable. Influenza A, influenza B, RSV, COVID PCR negative. Patient was admitted under orthopedic surgery team and we were consulted for medical clearance and medical management throughout hospitalization. Physical exam: Patient seen and fully evaluated at bedside this morning. She is postoperative day 3. Patient resting comfortably and denies having any pain or complaints at this time. Patient's family at bedside. Patient's daughter reports patient had a much better night last night and feels her mentation and pain was significantly better after receiving the blood transfusion. Morning labs were drawn at 230 this morning and sent to [facility] for processing. Currently awaiting repeat hemoglobin results at this time. Patient remains on 2 L O2 maintaining SpO2 in the 90s. She denies feeling short of breath or any other complaints at this time. Vital signs reviewed and stable. General: Nontoxic, no distress and appears stated age. Thin and frail build. Derm: Skin warm and dry, normal coloration for ethnicity. Head: Atraumatic, normocephalic and symmetric. Eyes: EOM's intact, no lid lag, and anicteric sclera Mouth: no lip lesions, mucus membranes moist Cardiovascular: regular rate and rhythm with normal S1S2, soft systolic murmur, positive posterior tibial pulses bilaterally, and cap refill < 2 seconds. Lungs: Respirations even, regular, and unlabored on supplemental oxygen. Lungs CTA bilaterally, no rhonchi, no rales, no wheezing, and no accessory muscle usage. Abdominal: soft, nontender to palpation, no guarding, no appreciable organomegaly Ext: No gross muscle atrophy, no edema, no contractures. Movement and sensation intact. Postoperative dressing left lateral hip Neuro: Speech clear, face symmetrical and CN II-XII grossly intact with no noted focal neuro deficits Psych: Alert and oriented to person, place, time, and situation. Appropriate and pleasant affect. Assessment and Plan of Care: Status post left hip hemiarthroplasty Femur fracture, subcapital left femoral neck fracture - DVT prophylaxis, pain management, wound/dressing management, weightbearing, and PT/OT per primary admitting orthopedic surgery team.. Acute postoperative blood loss anemia, greater than expected Thrombocytopenia Sinus tachycardia Postoperative leukocytosis Abnormal differential revealing positive crenated cells, likely secondary to dehydration - Acute postoperative blood loss anemia greater than expected with preoperative hemoglobin of 10.8 and hemoglobin decreasing down to 7.2. Patient was transfused with 1 unit PRBCs, there was no active bleeding noted. Patient awaiting repeat hemoglobin levels to result. Labs were drawn at 2:30 AM however lab stated patient's labs were sent to [facility] for processing and remain pending. Will follow-up with repeat lab once resulted and will transfuse for hemoglobin less than 7. - Continue telemetry monitoring. - Continue gentle IV fluid hydration with 0.9% normal saline at 75 cc/h. Postoperative hypoxia Subacute cough X 3 weeks -Oxygenation to be administered and titrated as needed to maintain SPO2 equal to or greater than 92%. Wean as patient tolerates and encourage use of incentive spirometry. -Telemetry monitoring. -Monitor pulse-oximetry -Duonebs scheduled 4 times daily and as needed for SOB and/or wheezing -Incentive Spirometry -Chest x-ray upon admission negative for acute cardiopulmonary process. Repeat chest x-ray completed 01/25/2025 also negative for acute cardiopulmonary process -Influenza A, influenza B, RSV, and COVID PCR were negative. Hypertension Monitor vital signs and continue daily medication regimen with hydralazine 25 mg twice daily and lisinopril 10 mg daily. Stage IIIb chronic kidney disease Renal function currently stable and at baseline with BUN of 30.0, creatinine 1.51, GFR of 31. Will continue to monitor closely with repeat a.m. labs and avoid necessary nephrotoxic medications. Hyperlipidemia Continue daily medication regimen with atorvastatin 10 mg nightly. Dementia Continue Namenda 5 mg twice daily. Severe protein calorie malnutrition with BMI of 18.9 kg/m Low total protein of 5.9 and albumin of 3.2. -Patient started on protein supplements 3 times daily between meals. Data and imaging reviewed: Labs completed and reviewed. CBC remains pending at this time, confirm that it was drawn at 2:30 AM by lab and they stated sample was sent to [facility] for processing and remains pending at this time. BMP showing non-anion gap metabolic acidosis with chloride of 114, bicarb 19.7, and anion gap of 8.30. Renal function remained stable and at patient's baseline with BUN of 34.9, creatinine of 1.5, GFR of 33. Blood glucose 103. Magnesium 2.5. Liver profile showing elevated AST of 48 otherwise normal findings. Vital signs reviewed. Blood pressure 123/65, heart rate 99, respiratory rate 15, temp 97.9 F, and SpO2 of 93% on 2 L O2 via nasal cannula. Thank you for allowing us to participate in the care of this pleasant patient. Do not hesitate to contact us with questions. Someone can be reached from the [facility] hospitalist group all hours of the day at [phone] or via [employer]. Patient was seen independently by Nurse Pracitioner. This document was prepared using [employer] dictation software. Please allow for errors in family and divorce legal assistant, while rare they do occur. Familia Collado NP rendered care for this patient independently, reviewed the f indings and plan as documented in the note above and agree with plan. I did not physically speak with or examine the patient on this date. Objective - Vital Signs Vital signs: Vital Signs Temp 97.9 F 01/27/25 07:28 Pulse 76 01/27/25 09:07 Resp 15 01/27/25 07:28 BP 123/65 01/27/25 07:28 Pulse Ox 93 L 01/27/25 07:28 FiO2 35 01/26/25 10:15 Intake & Output 01/26/25 01/27/25 01/27/25 18:59 06:59 18:59 Intake Total 310 Output Total 500 Balance 310 -500 Intake: Blood Product 310 Rc As-1 Unit 310 [id number] Output: Urine 500 Uretheral (Tamez) 500 Other: Voiding Method Indwelling Catheter Indwelling Catheter # Bowel Movements 1 - Labs CBC & Chem 7: 01/27/25 02:37 01/27/25 02:37 Labs: Abnormal Lab Results - Last 24 Hours (Table) 01/26/25 01/26/25 01/26/25 Range/Units 08:42 08:42 12:57 WBC 15.50 H (4.50-10.00) 10*3/uL RBC 2.31 L (4.10-5.20) 10*6/uL Hgb 7.2 L D (12.0-15.0) g/dL Hct 22.9 L (37.2-46.3) % MCV 99.1 H (80.0-97.0) fL MCHC 31.4 L (32.0-37.0) g/dL RDW 14.9 H (11.5-14.5) % Plt Count 114 L (140-440) 10*3/uL MPV 12.9 H (9.5-12.2) fL Chloride 113 H (98-107) mmol/L Carbon Dioxide 20 L (22-30) mmol/L BUN 30 H (7-17) mg/dL Creatinine 1.51 H (0.52-1.04) mg/dL Est GFR (CKD-EPI) (>=60) BUN/Creatinine Ratio (12.00-20.00) Ratio Glucose 108 H (74-99) mg/dL Calcium 8.1 L (8.4-10.2) mg/dL Magnesium (1.5-2.4) mg/dL Total Bilirubin (0.3-1.2) mg/dL AST 43 H (14-36) U/L Total Protein 5.2 L (6.3-8.2) g/dL Albumin 2.6 L (3.5-5.0) g/dL Albumin/Globulin Ratio (1.60-3.17) Ratio Crossmatch See Detail 01/27/25 Range/Units 02:37 WBC (4.50-10.00) 10*3/uL RBC (4.10-5.20) 10*6/uL Hgb (12.0-15.0) g/dL Hct (37.2-46.3) % MCV (80.0-97.0) fL MCHC (32.0-37.0) g/dL RDW (11.5-14.5) % Plt Count (140-440) 10*3/uL MPV (9.5-12.2) fL Chloride 114 H (98-107) mmol/L Carbon Dioxide 19.7 L (22-30) mmol/L BUN 34.9 H (7-17) mg/dL Creatinine (0.52-1.04) mg/dL Est GFR (CKD-EPI) 33 L (>=60) BUN/Creatinine Ratio 23.27 H (12.00-20.00) Ratio Glucose (74-99) mg/dL Calcium 7.8 L (8.4-10.2) mg/dL Magnesium 2.5 H (1.5-2.4) mg/dL Total Bilirubin 0.2 L (0.3-1.2) mg/dL AST 48 H (14-36) U/L Total Protein 4.8 L (6.3-8.2) g/dL Albumin 2.6 L (3.5-5.0) g/dL Albumin/Globulin Ratio 1.18 L (1.60-3.17) Ratio Crossmatch
== END 2025-01-27 17:10 | disposition home health service (06) | DRG 521 ==
LOC: EC 15:28 → 4SSUR 16:57
PROVIDERS: ADMIT Orthopaedic Surgery Hand Surgery; ATTEND Orthopaedic Surgery Hand Surgery
PROC: 0SRS0J9 Replacement of Left Hip Joint, Femoral Surface with Synthetic Substitute, Cemented, Open Approach (ICD-10-PCS; principal; 2025-01-24 11:30)
DX: S72.012A Unspecified intracapsular fracture of left femur, initial encounter for closed fracture (principal); E43 Unspecified severe protein-calorie malnutrition; N18.32 Chronic kidney disease, stage 3b; F03.90 Unspecified dementia, unspecified severity, without behavioral disturbance, psychotic disturbance, mood disturbance, and anxiety; D64.9 Anemia, unspecified; I12.9 Hypertensive chronic kidney disease with stage 1 through stage 4 chronic kidney disease, or unspecified chronic kidney disease; F32.A Depression, unspecified; Z68.1 Body mass index [BMI] 19.9 or less, adult; E78.5 Hyperlipidemia, unspecified; W18.30XA Fall on same level, unspecified, initial encounter; K21.9 Gastro-esophageal reflux disease without esophagitis; M81.0 Age-related osteoporosis without current pathological fracture; Z96.641 Presence of right artificial hip joint; M41.9 Scoliosis, unspecified; G47.00 Insomnia, unspecified; M19.90 Unspecified osteoarthritis, unspecified site; I44.0 Atrioventricular block, first degree; Y92.099 Unspecified place in other non-institutional residence as the place of occurrence of the external cause; Z79.01 Long term (current) use of anticoagulants; Z79.82 Long term (current) use of aspirin
CPT/HCPCS: 36415; 71045; 72170; 73501; 80053; 83735; 85025; 85027; 85610; 85730; 86850; 86900; 86901; 86920; 87636; 93005; 94640; 96361; 96374; 99285